=== PATIENT | male | born 1940 | race Caucasian/White ===

== ENCOUNTER 2018-02-14 06:15 | Emergency (ER) | payer MEDICARE, OTHER ==
[~2018-02-14] VITALS: Ht 177.8 cm; Wt 77.1 kg
[~2018-02-14 06:15] MED LIST: ASPIR 8181 MG ORAL; AUGMENTIN 875-1 EAC1 ORAL; CLINDAMYCIN HC300 MG ORAL; IBUPROFEN600 MG ORAL; LOSARTAN POTASS25 MG ORAL; METOPROLOL TART25 MG ORAL; SIMVASTATIN5 MG ORAL
[2018-02-14 06:52] VITALS: BP 160/85
[2018-02-14 07:14] LABS: BASOPHILS % (AUTO) 1.2 % (0.0-2.0); EOSINOPHILS % (AUTO) 3.9 % (0.0-3.0); HEMATOCRIT 38.8 % (42.0-52.0); HEMOGLOBIN 13.9 G/DL (14.2-18.0); LYMPHOCYTES % (AUTO) 22.3 % (20.0-45.0); MEAN CORPUSCULAR VOLUME 97 FL (80-99); MONOCYTES % (AUTO) 11.2 % (1.0-10.0); NEUTROPHILS % (AUTO) 61.4 % (45.0-75.0); PLATELET COUNT 134 K/UL (150-450); RED BLOOD COUNT 4.02 M/UL (4.70-6.10); RED CELL DISTRIBUTION WIDTH 11.5 % (11.6-14.8); WHITE BLOOD COUNT 6.2 K/UL (4.8-10.8)
[2018-02-14 07:27] LABS: ANION GAP 6 mmol/L (5-15); BLOOD UREA NITROGEN 13 mg/dL (7-18); CARBON DIOXIDE 29 MMOL/L (21-32); CHLORIDE 102 MMOL/L (98-107); POTASSIUM 4.1 MMOL/L (3.5-5.1); SODIUM 137 MMOL/L (136-145)
[2018-02-14 07:32] LABS: ALANINE AMINOTRANSFERASE 25 U/L (12-78); ALBUMIN 3.8 G/DL (3.4-5.0); ALBUMIN/GLOBULIN RATIO 1.1 (1.0-2.7); ALKALINE PHOSPHATASE 58 U/L (46-116); ASPARTATE AMINO TRANSFERASE 20 U/L (15-37); BILIRUBIN,TOTAL 0.6 MG/DL (0.2-1.0)
--- NOTE | 2018-02-14 07:50 | Emergency Room Report ---
History of Present Illness General Chief Complaint: Nosebleed Source: Patient Present Illness HPI 77-year-old male no significant past medical history presenting with right- sided nasal epistaxis for one hour prior to arrival. Patient was seen in the emergency room about 4 days ago, for similar problem, he was given a Rhino Rocket and then discharged. Patient saw ENT after who performed cauterization. Patient states that he began to have some nose bleeding again this morning. Taking aspirin but not did not take it today. No other complaints Allergies: Coded Allergies: Horse Serum Proteins (Unverified Allergy, Unknown, Anaphylaxis, 02/10/18) PENICILLINS (Verified Allergy, Unknown, 02/10/18) Uncoded Allergies: HAY FEVER (Allergy, Unknown, 02/10/18) Patient History Past Medical History: see triage record Past Surgical History: none Pertinent Family History: none Reviewed Nursing Documentation: PMH: Agreed; PSxH: Agreed Nursing Documentation-PMH Hx Cardiac Problems: Yes - bypass 6 yrs ago Hx Hypertension: Yes Review of Systems All Other Systems: negative except mentioned in HPI Physical Exam Vital Signs Date Time Temp Pulse Resp B/P (MAP) Pulse Ox O2 Delivery O2 Flow Rate FiO2 02/14/18 06:16 97.9 76 18 116/70 98 Room Air 97.9 Sp02 EP Interpretation: reviewed, normal General Appearance: normal inspection, well appearing, no apparent distress, alert, GCS 15, non-toxic Head: normocephalic, atraumatic Eyes: bilateral eye normal inspection, bilateral eye PERRL, bilateral eye EOMI ENT: other - dried blood in her right nostril, minimal oozing, no blood in the posterior pharynx Neck: normal inspection, full range of motion, supple Respiratory: normal inspection, lungs clear, normal breath sounds, no respiratory distress, no retraction, no wheezing, speaking full sentences, chest symmetrical Cardiovascular #1: normal inspection, regular rate, rhythm, no edema, normal capillary refill Cardiovascular #2: 2+ radial (R), 2+ radial (L) Gastrointestinal: normal inspection, non tender, soft, non-distended, no guarding Genitourinary: no CVA tenderness Musculoskeletal: normal inspection, back normal, normal range of motion, non- tender Neurologic: normal inspection, alert, oriented x3, responsive, motor strength/ tone normal, sensory intact, normal gait, speech normal Psychiatric: normal inspection, judgement/insight normal, memory normal Skin: normal inspection, normal color, no rash, warm/dry, well hydrated, normal turgor Medical Decision Making Diagnostic Impression: Primary Impression: Epistaxis ER Course 77-year-old male with epistaxis DDX: Anterior epistaxis, no shortness of breath no signs of it in posterior pharynx Plan: Obtain labs ER course: Patient has remained stable during ED stay. Patientwas packed with gauze, as well as nasal clasp, for about 30 minutes Labs are normal Nasal clasp was removed, no further epistaxis Disposition: Patient is to be discharged to home. Patient to follow up with ENT. Patient was told if bleeding returns to come back to the emergency room Please note that this Emergency Department Report was dictated using [employer]!embedded software test engineer technology software, occasionally this can lead to erroneous entry secondary to interpretation by the dictation equipment Last Vital Signs Date Time Temp Pulse Resp B/P (MAP) Pulse Ox O2 Delivery O2 Flow Rate FiO2 02/14/18 06:52 97.8 67 16 160/85 100 Room Air 97.8 Disposition: HOME, SELF-CARE Condition: Improved Referrals: NON PHYSICIAN (PCP) Patient Instructions: Nosebleed, [id number] Additional Instructions: PLEASE FOLLOW UP WITH ENT IN 1 WEEK Murray Hernandez M.D. Feb 14, 2018 07:50
[2018-02-14 07:58] VITALS: BP 178/87
[2018-02-14 08:00] VITALS: BP 178/87
== END 2018-02-14 08:09 | disposition home or self-care (01) ==
LOC: EMR 06:40
DX: R04.0 Epistaxis (principal); Z88.0 Allergy status to penicillin; I10 Essential (primary) hypertension; Z95.1 Presence of aortocoronary bypass graft
CPT/HCPCS: 36415; 80053; 85025; 85610; 85730; 99282

== ENCOUNTER 2018-11-15 04:23 | Inpatient (IN) | payer MEDICARE, OTHER ==
[~2018-11-15] VITALS: Ht 177.8 cm; Wt 72.6 kg
[2018-11-15 04:30] VITALS: BP 128/72
--- NOTE | 2018-11-15 04:30 | NUR ---
ED Nurse Note: Patient TRACEY RA 861 from home c/o right hip pain following a trip and fall in the bathroom 1x hour ago. Patient denies head injury or KO. PT AO4. NAD. VSS. Attached to monitor. Family at bedside.
--- NOTE | 2018-11-15 04:35 | Emergency Room Report ---
History of Present Illness General Chief Complaint: Multiple Trauma/Fall Source: Patient Present Illness HPI Patient has history of cardiac disease and cardiac surgery. Patient also has history of spinal disease and spinal surgery in the lumbar area. Patient had a mechanical fall today onto the right side of his head. He denies any other injuries. He complaints of significant pain in his right hip. Pain with movement and unable to bear weight. He denies any dysuria urinary frequency. Denies any other trauma. Denies hitting his head. Symptoms noted to be severe.No other modifying factors. No other associated signs and symptoms. No other complaints were noted. Allergies: Coded Allergies: Horse Serum Proteins (Unverified Allergy, Unknown, Anaphylaxis, 02/10/18) PENICILLINS (Verified Allergy, Unknown, 02/10/18) Uncoded Allergies: HAY FEVER (Allergy, Unknown, 02/10/18) Patient History Past Medical History: CAD Past Surgical History: CABG, other - Back surgery Social History: Denies: smoking, alcohol use, drug use Reviewed Nursing Documentation: PMH: Agreed; PSxH: Agreed Nursing Documentation-PMH Hx Cardiac Problems: Yes - bypass 6 yrs ago Hx Hypertension: Yes Review of Systems All Other Systems: negative except mentioned in HPI Physical Exam Vital Signs Date Time Temp Pulse Resp B/P (MAP) Pulse Ox O2 Delivery O2 Flow Rate FiO2 11/15/18 04:22 97.9 72 18 128/72 94 Room Air Sp02 EP Interpretation: reviewed, normal General Appearance: normal inspection, alert, mild distress - Due to pain Head: atraumatic Eyes: bilateral eye normal inspection ENT: normal ENT inspection, hearing grossly normal, normal voice Neck: normal inspection, full range of motion, supple, no bony tend Respiratory: normal inspection, lungs clear, normal breath sounds, no respiratory distress, no retraction, no wheezing Cardiovascular #1: regular rate, rhythm, no edema Gastrointestinal: normal inspection, normal bowel sounds, non tender, soft, no guarding, no hernia Genitourinary: no CVA tenderness Musculoskeletal: back normal, other - Bruise right hip,, tender to palpation, limited range of motion Neurologic: normal inspection, alert, responsive, speech normal Psychiatric: normal inspection, judgement/insight normal, mood/affect normal Skin: no rash, other - Bruise right hip Medical Decision Making Diagnostic Impression: Primary Impression: Hip pain Additional Impression: Fall ER Course Patient presents emergency department today status post fall and is complaining of right-sided hip pain. Patient is unable to ambulate. Differential considerations include factors dislocation versus strain.Given the severity of the patient's presentation I felt this is a highly complex patient. This patient required extensive workup. We'll obtain CAT scan x-ray and laboratory workup. We'll admit patient for further treatment. We'll sign case out to Dr. Dozier for final disposition. Labs Test 11/15/18 05:00 White Blood Count 7.2 K/UL (4.8-10.8) Red Blood Count 3.41 M/UL (4.70-6.10) Hemoglobin 11.6 G/DL (14.2-18.0) Hematocrit 31.9 % (42.0-52.0) Mean Corpuscular Volume 93 FL (80-99) Mean Corpuscular Hemoglobin 34.0 PG (27.0-31.0) Mean Corpuscular Hemoglobin Concent 36.3 G/DL (32.0-36.0) Red Cell Distribution Width 10.4 % (11.6-14.8) Platelet Count 113 K/UL (150-450) Mean Platelet Volume 8.0 FL (6.5-10.1) Neutrophils (%) (Auto) 68.9 % (45.0-75.0) Lymphocytes (%) (Auto) 14.5 % (20.0-45.0) Monocytes (%) (Auto) 13.7 % (1.0-10.0) Eosinophils (%) (Auto) 1.9 % (0.0-3.0) Basophils (%) (Auto) 0.9 % (0.0-2.0) Prothrombin Time 11.6 SEC (9.30-11.50) Prothromb Time International Ratio 1.1 (0.9-1.1) Activated Partial Thromboplast Time 23 SEC (23-33) Sodium Level 127 MMOL/L (136-145) Potassium Level 4.0 MMOL/L (3.5-5.1) Chloride Level 93 MMOL/L (98-107) Carbon Dioxide Level 25 MMOL/L (21-32) Anion Gap 9 mmol/L (5-15) Blood Urea Nitrogen 19 mg/dL (7-18) Creatinine 1.5 MG/DL (0.55-1.30) Estimat Glomerular Filtration Rate mL/min (>60) Glucose Level 122 MG/DL (74-106) Calcium Level 8.8 MG/DL (8.5-10.1) Total Bilirubin 0.4 MG/DL (0.2-1.0) Aspartate Amino Transf (AST/SGOT) 25 U/L (15-37) Alanine Aminotransferase (ALT/SGPT) 29 U/L (12-78) Alkaline Phosphatase 56 U/L (46-116) Total Protein 6.6 G/DL (6.4-8.2) Albumin 3.8 G/DL (3.4-5.0) Globulin 2.8 g/dL Albumin/Globulin Ratio 1.4 (1.0-2.7) Last Vital Signs Date Time Temp Pulse Resp B/P (MAP) Pulse Ox O2 Delivery O2 Flow Rate FiO2 11/15/18 04:22 97.9 72 18 128/72 94 Room Air Vega Araujo MD Nov 15, 2018 04:35
--- NOTE | 2018-11-15 05:00 | NUR ---
ED Nurse Note: IV Access established. blood drawn and sent down to lab.
[2018-11-15 05:15] LABS: BASOPHILS % (AUTO) 0.9 % (0.0-2.0); EOSINOPHILS % (AUTO) 1.9 % (0.0-3.0); HEMATOCRIT 31.9 % (42.0-52.0); HEMOGLOBIN 11.6 G/DL (14.2-18.0); LYMPHOCYTES % (AUTO) 14.5 % (20.0-45.0); MEAN CORPUSCULAR VOLUME 93 FL (80-99); MONOCYTES % (AUTO) 13.7 % (1.0-10.0); NEUTROPHILS % (AUTO) 68.9 % (45.0-75.0); PLATELET COUNT 113 K/UL (150-450); RED BLOOD COUNT 3.41 M/UL (4.70-6.10); RED CELL DISTRIBUTION WIDTH 10.4 % (11.6-14.8); WHITE BLOOD COUNT 7.2 K/UL (4.8-10.8)
[2018-11-15 05:30] VITALS: BP 152/82
[2018-11-15 05:49] LABS: ANION GAP 9 mmol/L (5-15); BLOOD UREA NITROGEN 19 mg/dL (7-18); CALCIUM 8.8 MG/DL (8.5-10.1); CARBON DIOXIDE 25 MMOL/L (21-32); CHLORIDE 93 MMOL/L (98-107); CREATININE 1.5 MG/DL (0.55-1.30); SODIUM 127 MMOL/L (136-145)
[2018-11-15 05:57] LABS: INR 1.1 (0.9-1.1)
[2018-11-15 05:58] LABS: ALANINE AMINOTRANSFERASE 29 U/L (12-78); ALBUMIN 3.8 G/DL (3.4-5.0); ALBUMIN/GLOBULIN RATIO 1.4 (1.0-2.7); ALKALINE PHOSPHATASE 56 U/L (46-116); ASPARTATE AMINO TRANSFERASE 25 U/L (15-37); BILIRUBIN,TOTAL 0.4 MG/DL (0.2-1.0)
[2018-11-15] MEDS ORDERED: Morphine Sulfate 2mg/ml Inj IVP ONE ×2 (06:15→07:15)
[2018-11-15 06:30] VITALS: BP 126/65
--- NOTE | 2018-11-15 06:30 | NUR ---
ED Nurse Note: Imaging at bedside
--- NOTE | 2018-11-15 07:00 | Diagnostic Imaging Report ---
EXAM: XR Chest, 1 View CLINICAL HISTORY: PAIN TECHNIQUE: Frontal view of the chest. COMPARISON: No relevant prior studies available. FINDINGS: Lungs: 2.5 mm left upper lobe granuloma and probable 3 mm right perihilar granuloma. No focal consolidation. Pleural space: No pleural effusion or pneumothorax. Heart: Prior coronary artery bypass grafting. Mediastinum: Unremarkable. Bones/joints: Prior median sternotomy. Ossification projecting from the inferior mid right clavicle compatible with remote ligamentous injury. Vasculature: Atherosclerotic calcifications in the aortic arch. Upper abdomen: Right diaphragmatic eventration. IMPRESSION: 1. No acute cardiopulmonary process radiographically evident. 2. Prior median sternotomy and coronary artery bypass grafting.
--- NOTE | 2018-11-15 07:01 | NUR ---
ED Nurse Note: ERMD at bedside
--- NOTE | 2018-11-15 07:02 | Diagnostic Imaging Report ---
EXAM: XR Pelvis, 1 or 2 Views CLINICAL HISTORY: PAIN TECHNIQUE: Frontal view of the pelvis. COMPARISON: No relevant prior studies available. FINDINGS: Bones/joints: Osseous demineralization and positioning limits bony detail. No displaced pelvic or proximal femoral fracture radiographically evident. No dislocation. Lower lumbar degenerative disc disease. Soft tissues: Surgical clips project over the ventral soft tissues. IMPRESSION: 1. Osseous demineralization and positioning limit bony detail. 2. No displaced pelvic or proximal femoral fracture radiographically evident. If there is strong clinical suspicion for occult fracture, CT bony pelvis could further assess.
[2018-11-15] MEDS ORDERED: LOSARTAN POTASS50 MG ORAL (07:07)
[2018-11-15] MEDS ORDERED: MICROZIDE12.5 M1 PO (07:07)
[2018-11-15] MEDS ORDERED: BACTRIM-DS1 EA ORAL (07:07)
[2018-11-15] MEDS ORDERED: METOPROLOL TART50 MG ORAL (07:07)
[2018-11-15] MEDS ORDERED: SIMVASTATIN40 MG ORAL (07:07)
[2018-11-15 07:30] VITALS: BP 105/58
--- NOTE | 2018-11-15 07:39 | NUR ---
ED Nurse Note: Pt. sent to CT
--- NOTE | 2018-11-15 07:46 | NUR ---
ED Nurse Note: Azul() :
--- NOTE | 2018-11-15 07:55 | NUR ---
ED Nurse Note: pt. came back from CT
--- NOTE | 2018-11-15 08:12 | NUR ---
ED Nurse Note: pt. is currently sleeping
--- NOTE | 2018-11-15 08:34 | NUR ---
ED Nurse Note: called [facility] Spoke with EMILIANO Swift
--- NOTE | 2018-11-15 08:47 | Diagnostic Imaging Report ---
EXAM: CT Right Hip Without Intravenous Contrast CLINICAL HISTORY: 78-year-old male status post fall, with right hip pain. TECHNIQUE: Axial computed tomography images of the right hip without intravenous contrast. Coronal and sagittal reformatted images were created and reviewed. CTDI is 23.07 mGy and DLP is 516 mGy-cm. One or more of the following dose reduction techniques were used: automated exposure control, adjustment of the mA and/or kV according to patient size, use of iterative reconstruction technique. COMPARISON: AP pelvis and two-view right hip same date. FINDINGS: Bones/joints: Acute, mildly to moderately comminuted and mildly displaced right acetabular fracture, essentially involving all bueno, with minimal fracture extension into the anterior iliac neck and pubic root, without involvement of the ischiopubic ramus or iliac body/wing. No right hip malalignment. Heterogeneous osteoporosis/osteopenia of the medial right femoral head, with associated chronic appearing cortical irregularity, without evidence of acute fracture. Mild right hip DJD. Chronic appearing cortical irregularity of the right anterior superior iliac spine. Partial ankylosis of the right SI joint. Soft tissues: Ill-defined mild to moderate hyperdense fat stranding/hematoma within the imaged extraperitoneal right anterolateral pelvis adjacent to the medial acetabular wall fracture, with mild mass effect upon the right lateral aspect of the imaged moderately to markedly distended and mildly thick-walled urinary bladder. Small right hip joint effusion. Small to moderate right hydrocele, incompletely included. Vasculature: Moderate to marked calcified atherosclerotic plaque. IMPRESSION: Acute, mildly to moderately comminuted and mildly displaced right acetabular wall fractures, with associated ill-defined small to moderate extraperitoneal right anterolateral pelvic hematoma.
[2018-11-15] MEDS ORDERED: Sodium Chloride 500ML 500 ML IV ONE (09:00)
[2018-11-15] MEDS ORDERED: Miralax 17gm pkt ORAL PRN (09:15)
[2018-11-15] MEDS ORDERED: Mylanta II UD 30ml ORAL PRN (09:15)
[2018-11-15] MEDS ORDERED: Zolpidem 5mg tab ORAL PRN (09:15)
--- NOTE | 2018-11-15 09:49 | General Progress Note ---
Progress Note Progress Note [id number] full consult dictated Kristina Weber MD Nov 15, 2018 09:49
[2018-11-15] MEDS: Morphine Sulfate 4mg/ml Inj (IV/IM USE ONLY) IVP PRN ×2 (09:52→17:31)
[2018-11-15 09:59] VITALS: BP 133/60
--- NOTE | 2018-11-15 10:01 | NUR ---
ED Nurse Note: telephone report given to EMILIANO Tripp
--- NOTE | 2018-11-15 10:20 | NUR ---
ED Nurse Note: Pt. transported via gurney with all his belongings. report given to EMILIANO Tripp. 20 gauge IV access on L forearm intact and patent
--- NOTE | 2018-11-15 10:25 | NUR ---
NURSE NOTES: Received report from EMILIANO Grimes. Pt. transported via gurney with all his belongings. Hearing aid both sides remained with patient. Patient AO x4. No active cardiac, respiratory distress noticed at this time. VS at the time of arrival BP 145/72. HR 96, T 98.2, RR 18 at RA O2 sat 97%. Family member at bedside. Bed in lowest position, side rails up x2, call light within reach. Patient c/o leg cramping pain 06/19. IV at Lt. Forearm 20G SL, IV site asymptomatic, patent, intact. Will continue to monitor.
[2018-11-15] MEDS: LORazepam Inj 2mg/ml 1ml IV PRN (10:29)
--- NOTE | 2018-11-15 11:30 | History and Physical Report ---
DATE OF ADMISSION: 11/15/2018 TIME: 9 a.m. CONSULTANTS: 1. Justice So M.D. 2. Yovany Henson M.D. 3. Kristina Weber M.D. 4. Logan Cho M.D. 5. Karen Maria M.D. CHIEF COMPLAINT: Right hip fracture. BRIEF HISTORY: The patient is an 78-year-old male, who lives at home, was slipped and fell, and sustained right hip pain, diagnosed hip fracture. Dr. So consulted briefly, Orthopedic, and said no surgery indicated currently. The patient is currently calm in the ER gurney, slight general pain. No complaint otherwise. REVIEW OF SYSTEMS: No chest pain. No shortness of breath. No nausea, vomiting, or diarrhea. PAST MEDICAL HISTORY: Hypertension, Parkinson, UTI on Bactrim, and chronic prostate issue. PAST SURGICAL HISTORY: Back surgery x2. ALLERGIES: Penicillin and steroids. SOCIAL HISTORY: No smoking. Positive alcohol. No intravenous drug abuse. FAMILY HISTORY: Noncontributory. PHYSICAL EXAMINATION: GENERAL: Calm in bed, oriented x3, in no acute distress. Slight tremor, bilateral hands. VITAL SIGNS: Temperature is 98 degrees, pulse 80, respirations 18, blood pressure 105/58. CARDIOVASCULAR: No murmur. LUNGS: Distant and clear. ABDOMEN: Bowel sounds positive. Nontender. Nondistended. EXTREMITIES: No cyanosis or edema. NEUROLOGIC: Cranial nerves II through XII are grossly intact. Deep tendon reflexes 2+/4. Muscle strength 4/5. Slight bilateral upper extremity tremors. LABORATORY DATA: Labs at this time show hemoglobin 11.6 and platelet 113,000. Otherwise, CBC is normal. BMP shows sodium 127, chloride 93, BUN and creatinine 19 and 1.5, and glucose 122. INR is 1.1 and PTT 23. MEDICATIONS: Include Cozaar, Lopressor, Tylenol, morphine, Zofran, Ambien, and IV fluids. ASSESSMENT: 1. Right hip fracture. 2. Parkinson. 3. Anemia. 4. Hypertension. 5. Urinary tract infection. 6. Chronic prostate issue. 7. Hyponatremia. PLAN: 1. Pain control. 2. PT, dietary evaluation. 3. Blood pressure control. 4. IV fluids. 5. CBC and BMP in the morning. 6. Resume home medications. João Danielson D.O. DR: DEEP JOB#: [id number] CC:
--- NOTE | 2018-11-15 12:00 | NUR ---
NURSE NOTES: Dr. Maria made aware patient c/o leg cramping. Flexeril 10mg PO QID per Dr. Maria. Order noted, entered, carried out. Will continue to monitor.
--- NOTE | 2018-11-15 12:29 | Diagnostic Imaging Report ---
EXAM: US Duplex Bilateral Lower Extremity Veins CLINICAL HISTORY: DVT TECHNIQUE: Real-time duplex ultrasound scan of the bilateral lower extremity veins integrating B-mode two-dimensional vascular structure, Doppler spectral analysis, color flow Doppler imaging and compression. COMPARISON: No relevant prior studies available. FINDINGS: Right deep veins: Unremarkable. No DVT in the right common femoral, femoral, proximal deep femoral or popliteal veins. The veins demonstrate normal color flow, are normally compressible, with normal phasic flow and/or augmentation response. Right superficial veins: Unremarkable. No thrombus in the visualized right great saphenous vein. Left deep veins: Unremarkable. No DVT in the left common femoral, femoral, proximal deep femoral or popliteal veins. The veins demonstrate normal color flow, are normally compressible, with normal phasic flow and/or augmentation response. Left superficial veins: Unremarkable. No thrombus in the visualized left great saphenous vein. Soft tissues: No popliteal cyst. IMPRESSION: Unremarkable bilateral lower extremity duplex venous ultrasound.
--- NOTE | 2018-11-15 12:37 | Diagnostic Imaging Report ---
EXAM: XR Right Hip With Pelvis When Performed, 2 or 3 Views CLINICAL HISTORY: PAIN TECHNIQUE: Two or three views of the right hip, with pelvis when performed. COMPARISON: X-ray of the pelvis dated 11/15/18. FINDINGS: Bones/joints: Vertical lucency suggesting a minimally displaced fracture of the right acetabular roof. Minimally displaced corner fracture of the superolateral margin of the right acetabulum. 1 cm well- corticated triangular ossific fragment adjacent to the greater trochanter, likely sequelae of remote trauma versus a degenerative osteophyte or enthesophyte. Mild degenerative narrowing of the right hip joint space. Degenerative changes in the lower lumbar spine and lumbosacral junction. Soft tissues: Surgical clips overlie the scrotum. IMPRESSION: 1. Vertical lucency suggesting a minimally displaced fracture of the right acetabular roof. 2. Minimally displaced corner fracture of the superolateral margin of the right acetabulum. 3. 1 cm well-corticated triangular ossific fragment adjacent to the greater trochanter, likely sequelae of remote trauma versus a degenerative osteophyte or enthesophyte.
--- NOTE | 2018-11-15 13:54 | Cardiology Progress Note ---
Assessment/Plan Assessment/Plan The patient is seen and examined, full consult note will be dictated soon. Objective Last 24 Hour Vital Signs Date Time Temp Pulse Resp B/P (MAP) Pulse Ox O2 Delivery O2 Flow Rate FiO2 11/15/18 11:03 Room Air 11/15/18 10:00 98.0 91 18 133/60 100 Room Air 11/15/18 09:59 98.0 91 18 133/60 100 Room Air 11/15/18 07:39 98.0 11/15/18 07:30 98.0 80 18 105/58 100 Room Air 11/15/18 06:48 97.9 11/15/18 06:44 72 18 Room Air 11/15/18 06:30 97.9 76 18 126/65 98 Room Air 11/15/18 05:30 97.9 83 17 152/82 98 Room Air 11/15/18 04:30 97.9 70 18 128/72 94 Room Air 11/15/18 04:22 97.9 72 18 128/72 94 Room Air Laboratory Tests Test 11/15/18 05:00 White Blood Count 7.2 K/UL (4.8-10.8) Red Blood Count 3.41 M/UL (4.70-6.10) L Hemoglobin 11.6 G/DL (14.2-18.0) L Hematocrit 31.9 % (42.0-52.0) L Mean Corpuscular Volume 93 FL (80-99) Mean Corpuscular Hemoglobin 34.0 PG (27.0-31.0) H Mean Corpuscular Hemoglobin Concent 36.3 G/DL (32.0-36.0) H Red Cell Distribution Width 10.4 % (11.6-14.8) L Platelet Count 113 K/UL (150-450) L Mean Platelet Volume 8.0 FL (6.5-10.1) Neutrophils (%) (Auto) 68.9 % (45.0-75.0) Lymphocytes (%) (Auto) 14.5 % (20.0-45.0) L Monocytes (%) (Auto) 13.7 % (1.0-10.0) H Eosinophils (%) (Auto) 1.9 % (0.0-3.0) Basophils (%) (Auto) 0.9 % (0.0-2.0) Prothrombin Time 11.6 SEC (9.30-11.50) H Prothromb Time International Ratio 1.1 (0.9-1.1) Activated Partial Thromboplast Time 23 SEC (23-33) Urine Eosinophils None seen (NONE SEEN) Urine Random Creatinine Pending Urine Random Microalbumin Pending Urine Random Total Protein 11 MG/DL (< 11.9) Urine Random Sodium 66 mmol/L (20-110) Urine Creatinine 97.0 MG/DL (30.0-125.0) Urine Microalbumin/Creatinine Ratio Pending Sodium Level 127 MMOL/L (136-145) L Potassium Level 4.0 MMOL/L (3.5-5.1) Chloride Level 93 MMOL/L (98-107) L Carbon Dioxide Level 25 MMOL/L (21-32) Anion Gap 9 mmol/L (5-15) Blood Urea Nitrogen 19 mg/dL (7-18) H Creatinine 1.5 MG/DL (0.55-1.30) H Estimat Glomerular Filtration Rate mL/min (>60) Glucose Level 122 MG/DL (74-106) H Calcium Level 8.8 MG/DL (8.5-10.1) Total Bilirubin 0.4 MG/DL (0.2-1.0) Aspartate Amino Transf (AST/SGOT) 25 U/L (15-37) Alanine Aminotransferase (ALT/SGPT) 29 U/L (12-78) Alkaline Phosphatase 56 U/L (46-116) Total Protein 6.6 G/DL (6.4-8.2) Albumin 3.8 G/DL (3.4-5.0) Globulin 2.8 g/dL Albumin/Globulin Ratio 1.4 (1.0-2.7) Yovany Henson MD Nov 15, 2018 13:54
[2018-11-15] MEDS: Cyclobenzaprine 10mg Tab ORAL SCH ×3 (14:24→21:31)
[2018-11-15] MEDS: Aspirin EC 81mg tab ORAL SCH (14:24)
[2018-11-15 14:34] LABS: APPEARANCE,URINE CLEAR; BILIRUBIN, URINE NEGATIVE (NEGATIVE); COLOR,URINE PALE YELLOW; GLUCOSE, URINE (UA) NEGATIVE (NEGATIVE); KETONES,URINE NEGATIVE (NEGATIVE); LEUKOCYTE ESTERASE ,URINE 1+ (NEGATIVE); NITRITE,URINE NEGATIVE (NEGATIVE); PH,URINE 6.5 (4.5-8.0); PROTEIN,URINE 1+ (NEGATIVE); UROBILINOGEN,URINE NORMAL MG/DL (0.0-1.0)
--- NOTE | 2018-11-15 15:42 | Consultation ---
History of Present Illness General Date patient seen: Nov 16, 2018 Chief Complaint: Multiple Trauma/Fall Present Illness HPI 78 year old male with hx cardiac disease and cardiac surgery, HTN, spinal disease and spinal surgery in the lumbar area was taken to [facility] ER after an episode of mechanical fall resulting in significant pain in his right hip. Pain with movement and unable to bear weight. He was diagnosed to have right acetabular wall fracture and admitted for further wok up. No other associated signs and symptoms. No other complaints were noted. Allergies: Coded Allergies: Horse Serum Proteins (Unverified Allergy, Unknown, Anaphylaxis, 02/10/18) PENICILLINS (Verified Allergy, Unknown, 02/10/18) Uncoded Allergies: HAY FEVER (Allergy, Unknown, 02/10/18) Medication History Scheduled Amoxicillin/Potassium Clav 875-125* (Augmentin 875-125 Tablet*), 1 TAB ORAL TWICE A DAY Aspirin* (Aspir 81*), 81 MG ORAL DAILY, (Reported) Clindamycin Hcl (Clindamycin Hcl), 300 MG ORAL THREE TIMES A DAY Hydrochlorothiazide (Microzide), 12.5 MG PO DAILY, (Reported) Losartan Potassium* (Losartan Potassium*), Unknown Dose ORAL DAILY, (Reported) Losartan Potassium* (Losartan Potassium*), 100 MG ORAL DAILY, (Reported) Metoprolol Tartrate* (Metoprolol Tartrate*), Unknown Dose ORAL EVERY 12 HOURS, ( Reported) Metoprolol Tartrate* (Metoprolol Tartrate*), 50 MG ORAL DAILY, (Reported) Simvastatin (Zocor), Unknown Dose ORAL BEDTIME, (Reported) Simvastatin (Zocor), 40 MG ORAL BEDTIME, (Reported) Trimethoprim/Sulfamethoxazole (Bactrim Ds Tablet), 1 TAB ORAL TWICE A DAY, ( Reported) Scheduled PRN Ibuprofen* (Motrin*), 600 MG ORAL Q8H PRN for For Pain 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 Resuscitation status Full Code Advanced Directive on File Past Medical/Surgical History Past Medical/Surgical History: (1) History of hypertension Review of Systems All Other Systems: negative except mentioned in HPI Physical Exam General Appearance: WD/WN Lines, tubes and drains: peripheral HEENT: normocephalic, atraumatic, mucous membranes moist Neck: non-tender, supple, normal inspection Respiratory/Chest: chest wall non-tender, lungs clear, normal breath sounds Cardiovascular/Chest: normal peripheral pulses, normal rate, regular rhythm Abdomen: normal bowel sounds, non tender Skin Exam: normal pigmentation 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 Last 24 Hour Vital Signs Date Time Temp Pulse Resp B/P (MAP) Pulse Ox O2 Delivery O2 Flow Rate FiO2 11/15/18 12:00 81 11/15/18 11:03 Room Air 11/15/18 10:00 98.0 91 18 133/60 100 Room Air 11/15/18 09:59 98.0 91 18 133/60 100 Room Air 11/15/18 07:39 98.0 11/15/18 07:30 98.0 80 18 105/58 100 Room Air 11/15/18 06:48 97.9 11/15/18 06:44 72 18 Room Air 11/15/18 06:30 97.9 76 18 126/65 98 Room Air 11/15/18 05:30 97.9 83 17 152/82 98 Room Air 11/15/18 04:30 97.9 70 18 128/72 94 Room Air 11/15/18 04:22 97.9 72 18 128/72 94 Room Air Laboratory Tests Test 11/15/18 05:00 11/15/18 13:30 White Blood Count 7.2 K/UL (4.8-10.8) Red Blood Count 3.41 M/UL (4.70-6.10) L Hemoglobin 11.6 G/DL (14.2-18.0) L Hematocrit 31.9 % (42.0-52.0) L Mean Corpuscular Volume 93 FL (80-99) Mean Corpuscular Hemoglobin 34.0 PG (27.0-31.0) H Mean Corpuscular Hemoglobin Concent 36.3 G/DL (32.0-36.0) H Red Cell Distribution Width 10.4 % (11.6-14.8) L Platelet Count 113 K/UL (150-450) L Mean Platelet Volume 8.0 FL (6.5-10.1) Neutrophils (%) (Auto) 68.9 % (45.0-75.0) Lymphocytes (%) (Auto) 14.5 % (20.0-45.0) L Monocytes (%) (Auto) 13.7 % (1.0-10.0) H Eosinophils (%) (Auto) 1.9 % (0.0-3.0) Basophils (%) (Auto) 0.9 % (0.0-2.0) Prothrombin Time 11.6 SEC (9.30-11.50) H Prothromb Time International Ratio 1.1 (0.9-1.1) Activated Partial Thromboplast Time 23 SEC (23-33) Urine Eosinophils None seen (NONE SEEN) Urine Random Creatinine Pending Urine Random Microalbumin Pending Urine Random Total Protein 11 MG/DL (< 11.9) Urine Random Sodium 66 mmol/L (20-110) Urine Creatinine 97.0 MG/DL (30.0-125.0) Urine Microalbumin/Creatinine Ratio Pending Sodium Level 127 MMOL/L (136-145) L Potassium Level 4.0 MMOL/L (3.5-5.1) Chloride Level 93 MMOL/L (98-107) L Carbon Dioxide Level 25 MMOL/L (21-32) Anion Gap 9 mmol/L (5-15) Blood Urea Nitrogen 19 mg/dL (7-18) H Creatinine 1.5 MG/DL (0.55-1.30) H Estimat Glomerular Filtration Rate mL/min (>60) Glucose Level 122 MG/DL (74-106) H Calcium Level 8.8 MG/DL (8.5-10.1) Total Bilirubin 0.4 MG/DL (0.2-1.0) Aspartate Amino Transf (AST/SGOT) 25 U/L (15-37) Alanine Aminotransferase (ALT/SGPT) 29 U/L (12-78) Alkaline Phosphatase 56 U/L (46-116) Total Protein 6.6 G/DL (6.4-8.2) Albumin 3.8 G/DL (3.4-5.0) Globulin 2.8 g/dL Albumin/Globulin Ratio 1.4 (1.0-2.7) Urine Color Pale yellow Urine Appearance Clear Urine pH 6.5 (4.5-8.0) Urine Specific Institute 1.010 (1.005-1.035) Urine Protein 1+ (NEGATIVE) H Urine Glucose (UA) Negative (NEGATIVE) Urine Ketones Negative (NEGATIVE) Urine Blood 5+ (NEGATIVE) H Urine Nitrite Negative (NEGATIVE) Urine Bilirubin Negative (NEGATIVE) Urine Urobilinogen Normal MG/DL (0.0-1.0) Urine Leukocyte Esterase 1+ (NEGATIVE) H Urine RBC 20-30 /HPF (0 - 0) H Urine WBC 2-4 /HPF (0 - 0) Urine Squamous Epithelial Cells Occasional /LPF Urine Bacteria Occasional /HPF (NONE) Height (Feet): 5 Height (Inches): 10.00 Weight (Pounds): 160 Medications Current Medications Medications (Trade) Dose Ordered Sig/Marie Route PRN Reason Start Time Stop Time Status Last Admin Dose Admin Acetaminophen (Tylenol) 650 mg Q4H PRN ORAL fever 11/15/18 09:15 12/15/18 09:14 Al Hydroxide/Mg Hydroxide (Mylanta II) 30 ml Q6H PRN ORAL dyspepsia 11/15/18 09:15 12/15/18 09:14 Aspirin (Ecotrin) 81 mg DAILY ORAL 11/15/18 14:15 12/15/18 14:14 11/15/18 14:24 Atorvastatin Calcium (Lipitor) 40 mg BEDTIME ORAL 11/15/18 21:00 12/15/18 20:59 Cyclobenzaprine HCl (Flexeril) 10 mg QID ORAL 11/15/18 13:00 12/15/18 12:59 11/15/18 14:24 Dextrose (Dextrose 50%) 25 ml Q30M PRN IV Hypoglycemia 11/15/18 09:15 12/15/18 09:14 Dextrose (Dextrose 50%) 50 ml Q30M PRN IV Hypoglycemia 11/15/18 09:15 12/15/18 09:14 Lorazepam (Ativan 2mg/ml 1ml) 0.5 mg Q4H PRN IV For Anxiety 11/15/18 09:15 11/22/18 09:14 11/15/18 10:29 Losartan Potassium (Cozaar) 25 mg DAILY ORAL 11/16/18 09:00 12/16/18 08:59 Metoprolol Tartrate (Lopressor) 50 mg EVERY 12 HOURS ORAL 11/15/18 21:00 12/15/18 20:59 Morphine Sulfate (Morphine Sulfate) 1 mg Q4H PRN IVP For Pain 11/15/18 09:15 11/22/18 09:14 11/15/18 09:52 Ondansetron HCl (Zofran) 4 mg Q6H PRN IVP Nausea & Vomiting 11/15/18 09:15 12/15/18 09:14 Polyethylene Glycol (Miralax) 17 gm HSPRN PRN ORAL Constipation 11/15/18 09:15 12/15/18 09:14 Zolpidem Tartrate (Ambien) 5 mg HSPRN PRN ORAL Insomnia 11/15/18 09:15 11/22/18 09:14 Assessment/Plan Problem List: (1) Pelvic fracture ICD Codes: S32.9XXA - Fracture of unspecified parts of lumbosacral spine and pelvis, initial encounter for closed fracture SNOMED: 80701891 (2) History of hypertension ICD Codes: Z86.79 - Personal history of other diseases of the circulatory system SNOMED: 963123033 (3) Anemia ICD Codes: D64.9 - Anemia, unspecified SNOMED: 465176521 (4) Hyponatremia ICD Codes: E87.1 - Hypo-osmolality and hyponatremia SNOMED: 32348530 Assessment/Plan symptomatic treatment analgesics anemia w/u f/u Na monitor BP dvt prophylaxis Karen Maria MD Nov 15, 2018 15:42
--- NOTE | 2018-11-15 16:06 | NUR ---
NURSE NOTES: Dr. Weber made aware of sodium level of 127. Per Dr. Weber it is expected to be low on sodium d/t patient on HCT at home. No further order given. Will continue to monitor.
--- NOTE | 2018-11-15 16:15 | Consultation ---
DATE OF CONSULTATION: 11/15/2018 CARDIOLOGY CONSULTATION CONSULTING PHYSICIAN: Yovany Henson M.D. REFERRING PHYSICIAN: João Danielson D.O. REASON FOR CONSULTATION: Management of coronary artery disease. HISTORY OF PRESENT ILLNESS: The patient is a very unfortunate 78-year-old gentleman with underlying history of coronary artery disease, history of coronary artery bypass graft surgery, history of lumbar spine surgery in the past who had a mechanical fall at home falling on his right side of his head. The patient had significant pain in the right hip at the time of arrival to the hospital, but he was able to move his right leg. He did have x-ray of the hip which showed comminuted fracture of right acetabulum. He was admitted to telemetry for further evaluation and management. Cardiology consultation was made at request of Dr. Danielson for preoperative cardiac evaluation in case of ORIF of the right hip. The patient at this time denies any chest pain or shortness of breath. According to the patient's , the patient did not have any complaints of dyspnea on exertion. He had coronary artery bypass graft surgery about 6 years ago. The number of grafts is unknown as the patient appears to be lethargic due to pain medication and not providing a detailed history. PAST MEDICAL HISTORY: 1. CAD status post coronary artery bypass graft surgery about 6 years ago. 2. History of hypertension. 3. History of lumbar spine disease. PAST SURGICAL HISTORY: Coronary artery bypass graft surgery and as well as lumbar spine surgery. MEDICATIONS: List of medications at home includes aspirin 81 mg p.o. daily, Augmentin 875/125 one tablet twice a day, clindamycin 300 mg three times a day, hydrochlorothiazide 12.5 mg daily, ibuprofen 600 mg p.o. , losartan 50 mg two tablets daily, metoprolol 25 mg twice daily, simvastatin 40 mg p.o. at bedtime, Bactrim DS one tablet twice a day. ALLERGIES: To penicillin and horse serum proteins. SOCIAL HISTORY: Denies any tobacco, alcohol, or illicit drug use. REVIEW OF SYSTEMS: HEENT: Denies any headache, diplopia, or blurred vision. CONSTITUTIONAL: Denies any night sweats, fever, chills, or weight loss. CARDIOVASCULAR: Denies any chest pain, shortness breath, PND, orthopnea, or leg swelling. There was no syncope or presyncope associated with this fall. PULMONARY: Denies any cough, hemoptysis, or wheezing. GASTROINTESTINAL: Denies any nausea, vomiting, diarrhea, constipation, abdominal pain, or GI bleed. GENITOURINARY: Denies any hematuria, dysuria, or incontinence. NEUROLOGY: Denies any motor dysfunction, sensory deficit, or altered speech. MUSCULOSKELETAL: Significant for pain in the right hip, pain with movement but inability to bear weight. PHYSICAL EXAMINATION: VITAL SIGNS: Blood pressure was 128/72, pulse of 72, respirations 18, O2 saturation 94% on room air, and temperature 97.9 degrees Fahrenheit. GENERAL: The patient is a very unfortunate 78-year-old gentleman, lethargic, in no apparent respiratory distress. HEENT: Atraumatic and normocephalic. Anicteric. Pupils are equal, round, and reactive to light and accommodation. Extraocular muscles intact. NECK: JVP less than 5 cm. No carotid bruit. Carotid upstroke is 2+ bilaterally. CVS: Distant S1 and S2. No murmurs, gallops, or rubs. PMI is at fourth intercostal space at the midclavicular. LUNGS: Clear to auscultation bilaterally. ABDOMEN: Soft, nontender, and nondistended. No hepatosplenomegaly. Positive bowel sounds. EXTREMITIES: No evidence of edema, clubbing, or cyanosis. LABORATORY FINDINGS: WBC 7.3, hemoglobin 11.6, hematocrit 31.9, platelet count 113. Sodium was 127, potassium is 4.0, chloride 93, bicarbonate 25, BUN 19, creatinine 1.5, glucose 122, calcium is 8.8. INR is 1.1. A 12-lead electrocardiogram shows sinus rhythm at a rate of 81 with right bundle-branch block. No acute ST and T-wave abnormalities. Chest x-ray showed sternal wires, but no acute cardiopulmonary disease. ASSESSMENT: The patient is an very unfortunate 78-year-old gentleman, who is seen in Cardiology consultation at request of Dr. Danielson. 1. The patient has right hip fracture and currently not having any active active cardiac disease. His 12-lead electrocardiogram does not show any evidence of ischemia. Prior to this event, the patient did not have any cardiac symptoms such as exertional chest pain or dyspnea on exertion. We would like to obtain 2D echocardiography for assessment of LV systolic and diastolic function. Further therapeutic and diagnostic decision will be based on the results of 2D echocardiography. In the meantime, I would continue the patient on aspirin and statins. 2. History of coronary artery disease, status post coronary artery bypass graft surgery. 3. History of hypertension. 4. Right hip fracture. I would like to thank, Dr. Danielson, for allowing me to participate in care of this patient. Yovany Henson M.D. DR: Althea JOB#: [id number] CC:
--- NOTE | 2018-11-15 18:17 | NUR ---
NURSE NOTES: Dr. Maria made aware urine color between danielle to red, some blood clot noticed at Melendez cath. No further order given yet. Will continue to monitor.
--- NOTE | 2018-11-15 19:29 | NUR ---
HAND-OFF: Report given to EMILIANO Singletary.
--- NOTE | 2018-11-15 19:51 | NUR ---
NURSE NOTES: RECEIVED PATIENT ASLEEP, EASILY AROUSABLE, NO COMPLAINTS OF CHEST PAIN AT THIS TIME. FALL PRECAUTIONS IN PLACE: CALL LIGHT WITHIN REACH, BED IN LOW POSITION AND BED ALARM ON. WILL CONTINUE WITH PLAN OF CARE.
[2018-11-15 20:00] VITALS: BP 141/69
[2018-11-15] MEDS ORDERED: Metoprolol 25mg tab ORAL SCH (21:00)
[2018-11-15] MEDS: Metoprolol Tartrate 50mg tab ORAL SCH (21:30)
[2018-11-15] MEDS: Atorvastatin 20mg tab ORAL SCH (21:30)
[2018-11-16] VITALS: BP 123/65
--- NOTE | 2018-11-16 03:45 | Consultation ---
DATE OF CONSULTATION: 11/15/2018 NEPHROLOGY CONSULTATION CONSULTING PHYSICIAN: Kristina Weber M.D. REASON FOR CONSULTATION: Acute renal failure and hyponatremia. HISTORY OF PRESENT ILLNESS: The patient is an unfortunate 78-year-old male with past medical history significant for history of CAD, hypertension, history of CABG, history of spinal stenosis and status post two surgeries in the back for his spinal stenosis last year. He also has a history of urinary frequency and dysuria and he recently also was diagnosed with Parkinson's. This morning around 3 o'clock, he went to the bathroom. He fell and he hit his and as a result of that he was in severe pain. He was brought in to the hospital. I was called for management of renal disease and electrolyte imbalance. PAST MEDICAL HISTORY: Includin. History of hypertension. 2. History of CAD. 3. History of recurrent urinary tract infection. 4. History of BPH. 5. History of spinal stenosis. PAST SURGICAL HISTORY: 1. History of CABG in 2009. 2. History of two back surgeries for his spinal stenosis in last year July and April of last year. FAMILY HISTORY: Noncontributory. ALLERGIES: Allergic to horse serum and also penicillin. MEDICATIONS: Home medications are includin. Augmentin. 2. Aspirin. 3. Hydrochlorothiazide. 4. Ibuprofen. 5. Losartan. 6. Metoprolol. 7. Simvastatin. 8. Bactrim. REVIEW OF SYSTEMS: GENERAL: He complained of generalized weakness. Denies any fever, chills, or night sweats. HEAD AND NECK: Denies any dysphagia, odynophagia, blurry vision, headache, or neck stiffness. PULMONARY: No shortness of breath. No cough. No sputum. CARDIOVASCULAR: Denies any chest pain, orthopnea, PND, or leg swelling. GASTROINTESTINAL: No nausea, vomiting, diarrhea, hematemesis, or hematochezia. GENITOURINARY: Complained of frequency and nocturia four to five times. Complained of dysuria. Denies any hematuria. MUSCULOSKELETAL: He complained of hip pain. PHYSICAL EXAMINATION: VITAL SIGNS: The patient has a temperature of 98, blood pressure 128/72, pulse rate of 94. HEAD AND NECK: No JVP. No LAD. No thyromegaly. Extraocular movement intact. Pupils are reactive to light and accommodation. LUNGS: Clear to auscultation. CARDIAC: Regular rate and rhythm. S1 and S2. No murmur. No rub. ABDOMEN: Soft, nontender, and nondistended. EXTREMITIES: Has bruising in the , otherwise negative. LABORATORY AND DIAGNOSTIC DATA: Current laboratory values revealed sodium of 127, potassium of 4, chloride 93, bicarb 25, BUN of 19, creatinine of 0.5, glucose of 122, calcium of 8.8. AST of 25, ALT of 29, and alkaline phosphatase of 56. CBC revealed WBC count of 7.2, hemoglobin of 11.6, hematocrit of 31, and platelet count of . There is no UA. ASSESSMENT: 1. Hyponatremia most likely as a result of the hydrochlorothiazide that patient was no. 2. Acute versus chronic renal failure. The etiology of acute renal failure ATN due to unstable hemodynamics. Rhabdomyolysis is another possibility of increasing of creatinine. 3. Status post fall. 4. Hypertension. 5. CAD. 6. Dyslipidemia. PLAN: Plan for the patient to obtain UA. Check the random urine protein and creatinine ratio to calculate the proteinuria. Check the urine sodium and creatinine to calculate fractional excretion of sodium. Ultrasound of the kidney. I would also do urine culture. I would consider starting the patient on Flomax for BPH. I will hold the hydrochlorothiazide, continue with losartan. Again, I would like to thank, Dr. João Danielson, for allowing me to participate in the care of this patient. Kristina Weber M.D. DR: CARI JOB#: [id number] CC:
[2018-11-16 04:00] VITALS: BP 129/62
--- NOTE | 2018-11-16 07:31 | NUR ---
NURSE NOTES: Received report from EMILIANO Singletary. Patient in bed resting. Family member at bedside. Bed in lowest position, side rails up x3, call light within reach. SR with HR 76. No active s/s cardiac, respiratory distress noticed at this time. Melendez cath. draining well to gravity. IV site asymptomatic, patent, intact. AO x3, RA. Will continue to monitor.
--- NOTE | 2018-11-16 07:31 | NUR ---
HAND-OFF: Report given to EMILIANO LIN. PATIENT RESTING IN BED, NO SIGNS OF DISTRESS NOTED. AT BEDSIDE.
--- NOTE | 2018-11-16 07:35 | NUR ---
NURSE NOTES: Dr. So at bedside, discussed plan with patient and family member. Per. Dr. So no surgery needed at this point, but bedrest with no standing up.
[2018-11-16 08:00] VITALS: BP 113/66
[2018-11-16 08:01] LABS: HEMATOCRIT 27.2 % (42.0-52.0); HEMOGLOBIN 9.9 G/DL (14.2-18.0); MEAN CORPUSCULAR VOLUME 93 FL (80-99); PLATELET COUNT 90 K/UL (150-450); RED BLOOD COUNT 2.94 M/UL (4.70-6.10); RED CELL DISTRIBUTION WIDTH 10.8 % (11.6-14.8); WHITE BLOOD COUNT 5.5 K/UL (4.8-10.8)
[2018-11-16 08:26] LABS: ALANINE AMINOTRANSFERASE 26 U/L (12-78); ALBUMIN 3.2 G/DL (3.4-5.0); ALBUMIN/GLOBULIN RATIO 1.2 (1.0-2.7); ALKALINE PHOSPHATASE 44 U/L (46-116); ANION GAP 10 mmol/L (5-15); ASPARTATE AMINO TRANSFERASE 26 U/L (15-37); BILIRUBIN,TOTAL 0.8 MG/DL (0.2-1.0); BLOOD UREA NITROGEN 17 mg/dL (7-18); CALCIUM 8.5 MG/DL (8.5-10.1); CARBON DIOXIDE 23 MMOL/L (21-32); CHLORIDE 94 MMOL/L (98-107); CHOLESTEROL 119 MG/DL (< 200); HDL CHOLESTEROL 71 MG/DL (40-60); POTASSIUM 3.9 MMOL/L (3.5-5.1); SODIUM 127 MMOL/L (136-145); TRIGLYCERIDES 36 MG/DL (30-150)
[2018-11-16] MEDS: Metoprolol Tartrate 50mg tab ORAL SCH ×2 (08:42→20:51)
[2018-11-16] MEDS: Cyclobenzaprine 10mg Tab ORAL SCH ×4 (08:42→20:50)
[2018-11-16] MEDS: Aspirin EC 81mg tab ORAL SCH (08:43)
[2018-11-16] MEDS: Losartan 25mg tab ORAL SCH (08:43)
--- NOTE | 2018-11-16 09:32 | Consultation ---
History of Present Illness General Chief Complaint: Multiple Trauma/Fall Reason for Consultation: UTI Present Illness HPI Mr. Murry is a 78 yo male with PMHX of Hypertension, Parkinsonism and chronic prostate issues who was on bactrim at home for UTI who [facility] after a fall. He reports no fevers, chill and only mild dysuria. He is a little unclear but described suprapubic pain and dysuria without hematuria. He sasy that he slipped and fell. In the ED he was Dx with a right hip Fx but surgery was not indicated per Ortho. He was febrile and had no leukcytosis. His UA had some increase LE but no increase in WBCs. HE thinks that he was on the bactrim for 2 days prior to hospitalization. ID was consulted for UTI PMHx/PSHx HTN Parkinsonism Chronic prostate issues. Back surgery SocHx No T/D Drinks EtOH FamHx Not contributory Allergies: Coded Allergies: Horse Serum Proteins (Unverified Allergy, Unknown, Anaphylaxis, 02/10/18) PENICILLINS (Verified Allergy, Unknown, 02/10/18) Uncoded Allergies: HAY FEVER (Allergy, Unknown, 02/10/18) Medication History Scheduled Amoxicillin/Potassium Clav 875-125* (Augmentin 875-125 Tablet*), 1 TAB ORAL TWICE A DAY Aspirin* (Aspir 81*), 81 MG ORAL DAILY, (Reported) Clindamycin Hcl (Clindamycin Hcl), 300 MG ORAL THREE TIMES A DAY Hydrochlorothiazide (Microzide), 12.5 MG PO DAILY, (Reported) Losartan Potassium* (Losartan Potassium*), Unknown Dose ORAL DAILY, (Reported) Losartan Potassium* (Losartan Potassium*), 100 MG ORAL DAILY, (Reported) Metoprolol Tartrate* (Metoprolol Tartrate*), Unknown Dose ORAL EVERY 12 HOURS, ( Reported) Metoprolol Tartrate* (Metoprolol Tartrate*), 50 MG ORAL DAILY, (Reported) Simvastatin (Zocor), Unknown Dose ORAL BEDTIME, (Reported) Simvastatin (Zocor), 40 MG ORAL BEDTIME, (Reported) Trimethoprim/Sulfamethoxazole (Bactrim Ds Tablet), 1 TAB ORAL TWICE A DAY, ( Reported) Scheduled PRN Ibuprofen* (Motrin*), 600 MG ORAL Q8H PRN for For Pain Patient History Healthcare decision maker Macrum, Larry Resuscitation status Full Code Advanced Directive on File Review of Systems ROS Narrative 12 point ROS negative except as note in the HPI. Physical Exam Last 24 Hour Vital Signs Date Time Temp Pulse Resp B/P (MAP) Pulse Ox O2 Delivery O2 Flow Rate FiO2 11/16/18 09:00 Room Air 11/16/18 08:43 113/66 11/16/18 08:42 79 113/66 11/16/18 08:00 97.3 79 16 113/66 (82) 95 11/16/18 04:00 98.1 76 16 129/62 (84) 97 11/16/18 04:00 76 11/16/18 00:00 98.0 75 19 123/65 (84) 96 11/16/18 00:00 78 11/15/18 21:30 69 141/69 11/15/18 21:00 Room Air 11/15/18 20:00 83 11/15/18 20:00 98.1 69 18 141/69 (93) 97 11/15/18 16:00 97 11/15/18 12:00 81 11/15/18 11:03 Room Air 11/15/18 10:00 98.0 91 18 133/60 100 Room Air 11/15/18 09:59 98.0 91 18 133/60 100 Room Air Intake and Output 11/15/18 11/16/18 19:00 07:00 Intake Total 75 ml Output Total 600 ml 800 ml Balance -600 ml -725 ml Intake Oral 75 ml Output Urine Total 600 ml 800 ml Laboratory Tests Test 11/15/18 13:30 11/16/18 06:38 Urine Color Pale yellow Urine Appearance Clear Urine pH 6.5 (4.5-8.0) Urine Specific [place] 1.010 (1.005-1.035) Urine Protein 1+ (NEGATIVE) H Urine Glucose (UA) Negative (NEGATIVE) Urine Ketones Negative (NEGATIVE) Urine Blood 5+ (NEGATIVE) H Urine Nitrite Negative (NEGATIVE) Urine Bilirubin Negative (NEGATIVE) Urine Urobilinogen Normal MG/DL (0.0-1.0) Urine Leukocyte Esterase 1+ (NEGATIVE) H Urine RBC 20-30 /HPF (0 - 0) H Urine WBC 2-4 /HPF (0 - 0) Urine Squamous Epithelial Cells Occasional /LPF Urine Bacteria Occasional /HPF (NONE) White Blood Count 5.5 K/UL (4.8-10.8) Red Blood Count 2.94 M/UL (4.70-6.10) L Hemoglobin 9.9 G/DL (14.2-18.0) L Hematocrit 27.2 % (42.0-52.0) L Mean Corpuscular Volume 93 FL (80-99) Mean Corpuscular Hemoglobin 33.6 PG (27.0-31.0) H Mean Corpuscular Hemoglobin Concent 36.3 G/DL (32.0-36.0) H Red Cell Distribution Width 10.8 % (11.6-14.8) L Platelet Count 90 K/UL (150-450) L Mean Platelet Volume 8.6 FL (6.5-10.1) Neutrophils (%) (Auto) % (45.0-75.0) Lymphocytes (%) (Auto) % (20.0-45.0) Monocytes (%) (Auto) % (1.0-10.0) Eosinophils (%) (Auto) % (0.0-3.0) Basophils (%) (Auto) % (0.0-2.0) Neutrophils % (Manual) Pending Lymphocytes % (Manual) Pending Platelet Estimate Pending Platelet Morphology Pending Sodium Level 127 MMOL/L (136-145) L Potassium Level 3.9 MMOL/L (3.5-5.1) Chloride Level 94 MMOL/L (98-107) L Carbon Dioxide Level 23 MMOL/L (21-32) Anion Gap 10 mmol/L (5-15) Blood Urea Nitrogen 17 mg/dL (7-18) Creatinine 1.0 MG/DL (0.55-1.30) Estimat Glomerular Filtration Rate mL/min (>60) Glucose Level 107 MG/DL (74-106) H Calcium Level 8.5 MG/DL (8.5-10.1) Total Bilirubin 0.8 MG/DL (0.2-1.0) Aspartate Amino Transf (AST/SGOT) 26 U/L (15-37) Alanine Aminotransferase (ALT/SGPT) 26 U/L (12-78) Alkaline Phosphatase 44 U/L (46-116) L Total Protein 5.9 G/DL (6.4-8.2) L Albumin 3.2 G/DL (3.4-5.0) L Globulin 2.7 g/dL Albumin/Globulin Ratio 1.2 (1.0-2.7) Triglycerides Level 36 MG/DL (30-150) Cholesterol Level 119 MG/DL (< 200) LDL Cholesterol 45 mg/dL (<100) HDL Cholesterol 71 MG/DL (40-60) H Cholesterol/HDL Ratio 1.7 (3.3-4.4) L Thyroid Stimulating Hormone (TSH) 1.569 uiU/mL (0.358-3.740) Height (Feet): 5 Height (Inches): 10.00 Weight (Pounds): 160 Medications Current Medications Medications (Trade) Dose Ordered Sig/Marie Route PRN Reason Start Time Stop Time Status Last Admin Dose Admin Acetaminophen (Tylenol) 650 mg Q4H PRN ORAL fever 11/15/18 09:15 12/15/18 09:14 Al Hydroxide/Mg Hydroxide (Mylanta II) 30 ml Q6H PRN ORAL dyspepsia 11/15/18 09:15 12/15/18 09:14 Aspirin (Ecotrin) 81 mg DAILY ORAL 11/15/18 14:15 12/15/18 14:14 11/16/18 08:43 Atorvastatin Calcium (Lipitor) 40 mg BEDTIME ORAL 11/15/18 21:00 12/15/18 20:59 11/15/18 21:30 Cyclobenzaprine HCl (Flexeril) 10 mg QID ORAL 11/15/18 13:00 12/15/18 12:59 11/16/18 08:42 Dextrose (Dextrose 50%) 25 ml Q30M PRN IV Hypoglycemia 11/15/18 09:15 12/15/18 09:14 Dextrose (Dextrose 50%) 50 ml Q30M PRN IV Hypoglycemia 11/15/18 09:15 12/15/18 09:14 Lorazepam (Ativan 2mg/ml 1ml) 0.5 mg Q4H PRN IV For Anxiety 11/15/18 09:15 11/22/18 09:14 11/15/18 10:29 Losartan Potassium (Cozaar) 25 mg DAILY ORAL 11/16/18 09:00 12/16/18 08:59 11/16/18 08:43 Metoprolol Tartrate (Lopressor) 50 mg EVERY 12 HOURS ORAL 11/15/18 21:00 12/15/18 20:59 11/16/18 08:42 Morphine Sulfate (Morphine Sulfate) 1 mg Q4H PRN IVP For Pain 11/15/18 09:15 11/22/18 09:14 11/15/18 17:31 Ondansetron HCl (Zofran) 4 mg Q6H PRN IVP Nausea & Vomiting 11/15/18 09:15 12/15/18 09:14 Polyethylene Glycol (Miralax) 17 gm HSPRN PRN ORAL Constipation 11/15/18 09:15 12/15/18 09:14 Zolpidem Tartrate (Ambien) 5 mg HSPRN PRN ORAL Insomnia 11/15/18 09:15 11/22/18 09:14 Objective Narrative Gen: NAD, Thin, alert HEENT: NCAT, MMM, EOMI, PERRL, No Oral lesion, no scleral icterus NECK: full range of motion, supple, no meningismus, No LAD, No JVD LUNGS: CTAB, No W/C, No Accessory muscle use CARDS: RRR, S1, S2, No M/R/G, ABD: Soft, NT, ND, No R/G, + BS, No HSM, No Masses : No CVA tenderness Ext: C/C/E, Pulses 2+ B/L (DP, Rad): Right hip tender NEURO: A/O x 2, Strength and Sensation Grossly intact, Mild tremor PSYCH: Mood/affect normal SKIN: Warm/dry, No rashes Assessment/Plan Assessment/Plan 78 yo male with PMHX of Hypertension, Parkinsonism and chronic prostate issues who is currently on Bactrm for UTI who came to the ED after a fall. UTI On bactrim at home UA essentially negative Right Hip Fx HTN Parkinsonism Chronic prostate issues. Back surgery PLAN - Continue Bactrim # 3 /7 (End date 11/20/18) - Monitor CBC and Temps Thank you for this consult. We will continue to follow the patient during this hospitalization. Justice Kelsey MD Nov 16, 2018 09:32
--- NOTE | 2018-11-16 11:22 | Pulmonology Progress Note ---
Assessment/Plan Problems: (1) Pelvic fracture (2) History of hypertension (3) Anemia (4) Hyponatremia Assessment/Plan all reviewed doing better f/u Na rule out SIADH, ? to pain anemia w/u in process. dvt prophylaxis. Subjective ROS Limited/Unobtainable: No Constitutional: Reports: no symptoms HEENT: Repors: no symptoms Respiratory: Reports: no symptoms Allergies: Coded Allergies: Horse Serum Proteins (Unverified Allergy, Unknown, Anaphylaxis, 02/10/18) PENICILLINS (Verified Allergy, Unknown, 02/10/18) Uncoded Allergies: HAY FEVER (Allergy, Unknown, 02/10/18) Objective Last 24 Hour Vital Signs Date Time Temp Pulse Resp B/P (MAP) Pulse Ox O2 Delivery O2 Flow Rate FiO2 11/16/18 09:00 Room Air 11/16/18 08:43 113/66 11/16/18 08:42 79 113/66 11/16/18 08:00 80 11/16/18 08:00 97.3 79 16 113/66 (82) 95 11/16/18 04:00 98.1 76 16 129/62 (84) 97 11/16/18 04:00 76 11/16/18 00:00 98.0 75 19 123/65 (84) 96 11/16/18 00:00 78 11/15/18 21:30 69 141/69 11/15/18 21:00 Room Air 11/15/18 20:00 83 11/15/18 20:00 98.1 69 18 141/69 (93) 97 11/15/18 16:00 97 11/15/18 12:00 81 Intake and Output 11/15/18 11/16/18 19:00 07:00 Intake Total 75 ml Output Total 600 ml 800 ml Balance -600 ml -725 ml Intake Oral 75 ml Output Urine Total 600 ml 800 ml General Appearance: WD/WN HEENT: normocephalic, atraumatic Respiratory/Chest: chest wall non-tender, lungs clear Cardiovascular: normal peripheral pulses, normal rate Abdomen: normal bowel sounds, no organomegaly Genitourinary: normal external genitalia Skin: no rash Neurologic/Psychiatric: extractor loader and unloader II-XII grossly normal, abnormal gait Microbiology Date/Time Source Procedure Growth Status 11/15/18 05:00 Urine,Clean Catch Urine Culture - Preliminary NO GROWTH Resulted Laboratory Tests 11/15/18 13:30: Urine Color Pale yellow, Urine Appearance Clear, Urine pH 6.5, Urine Specific [place] 1.010, Urine Protein 1+H, Urine Glucose (UA) Negative, Urine Ketones Negative, Urine Blood 5+H, Urine Nitrite Negative, Urine Bilirubin Negative, Urine Urobilinogen Normal, Urine Leukocyte Esterase 1+H, Urine RBC 20-30H, Urine WBC 2-4, Urine Squamous Epithelial Cells Occasional, Urine Bacteria Occasional 11/16/18 06:38: White Blood Count 5.5, Red Blood Count 2.94L, Hemoglobin 9.9L, Hematocrit 27.2L , Mean Corpuscular Volume 93, Mean Corpuscular Hemoglobin 33.6H, Mean Corpuscular Hemoglobin Concent 36.3H, Red Cell Distribution Width 10.8L, Platelet Count 90L, Mean Platelet Volume 8.6, Neutrophils (%) (Auto) , Lymphocytes (%) (Auto) , Monocytes (%) (Auto) , Eosinophils (%) (Auto) , Basophils (%) (Auto) , Differential Total Cells Counted 100, Neutrophils % ( Manual) 68, Lymphocytes % (Manual) 14L, Monocytes % (Manual) 16H, Eosinophils % (Manual) 1, Basophils % (Manual) 1, Band Neutrophils 0, Platelet Estimate DecreasedL, Platelet Morphology Normal, Hypochromasia 1+, Sodium Level 127L, Potassium Level 3.9, Chloride Level 94L, Carbon Dioxide Level 23, Anion Gap 10, Blood Urea Nitrogen 17, Creatinine 1.0, Estimat Glomerular Filtration Rate , Glucose Level 107H, Osmolality [Pending], Uric Acid [Pending], Calcium Level 8.5 , Total Bilirubin 0.8, Aspartate Amino Transf (AST/SGOT) 26, Alanine Aminotransferase (ALT/SGPT) 26, Alkaline Phosphatase 44L, Total Protein 5.9L, Albumin 3.2L, Globulin 2.7, Albumin/Globulin Ratio 1.2, Triglycerides Level 36, Cholesterol Level 119, LDL Cholesterol 45, HDL Cholesterol 71H, Cholesterol/HDL Ratio 1.7L, Thyroid Stimulating Hormone (TSH) 1.569, Free Thyroxine [Pending], Free Triiodothyronine [Pending], Cortisol [Pending] Current Medications Medications (Trade) Dose Ordered Sig/Marie Route PRN Reason Start Time Stop Time Status Last Admin Dose Admin Acetaminophen (Tylenol) 650 mg Q4H PRN ORAL fever 11/15/18 09:15 12/15/18 09:14 Al Hydroxide/Mg Hydroxide (Mylanta II) 30 ml Q6H PRN ORAL dyspepsia 11/15/18 09:15 12/15/18 09:14 Aspirin (Ecotrin) 81 mg DAILY ORAL 11/15/18 14:15 12/15/18 14:14 11/16/18 08:43 Atorvastatin Calcium (Lipitor) 40 mg BEDTIME ORAL 11/15/18 21:00 12/15/18 20:59 11/15/18 21:30 Cyclobenzaprine HCl (Flexeril) 10 mg QID ORAL 11/15/18 13:00 12/15/18 12:59 11/16/18 08:42 Dextrose (Dextrose 50%) 25 ml Q30M PRN IV Hypoglycemia 11/15/18 09:15 12/15/18 09:14 Dextrose (Dextrose 50%) 50 ml Q30M PRN IV Hypoglycemia 11/15/18 09:15 12/15/18 09:14 Lorazepam (Ativan 2mg/ml 1ml) 0.5 mg Q4H PRN IV For Anxiety 11/15/18 09:15 11/22/18 09:14 11/15/18 10:29 Losartan Potassium (Cozaar) 25 mg DAILY ORAL 11/16/18 09:00 12/16/18 08:59 11/16/18 08:43 Metoprolol Tartrate (Lopressor) 50 mg EVERY 12 HOURS ORAL 11/15/18 21:00 12/15/18 20:59 11/16/18 08:42 Morphine Sulfate (Morphine Sulfate) 1 mg Q4H PRN IVP For Pain 11/15/18 09:15 11/22/18 09:14 11/15/18 17:31 Ondansetron HCl (Zofran) 4 mg Q6H PRN IVP Nausea & Vomiting 11/15/18 09:15 12/15/18 09:14 Polyethylene Glycol (Miralax) 17 gm HSPRN PRN ORAL Constipation 11/15/18 09:15 12/15/18 09:14 Zolpidem Tartrate (Ambien) 5 mg HSPRN PRN ORAL Insomnia 11/15/18 09:15 11/22/18 09:14 Karen Maria MD Nov 16, 2018 11:22
[2018-11-16 12:00] VITALS: BP 123/66
[2018-11-16] MEDS: Bactrim-DS 1 tab ORAL SCH ×2 (12:53→17:36)
[2018-11-16 13:28] LABS: APPEARANCE,URINE SLIGHTLY CLOUDY; BILIRUBIN, URINE NEGATIVE (NEGATIVE); GLUCOSE, URINE (UA) NEGATIVE (NEGATIVE); KETONES,URINE 1+ (NEGATIVE); LEUKOCYTE ESTERASE ,URINE 2+ (NEGATIVE); NITRITE,URINE NEGATIVE (NEGATIVE); PH,URINE 5 (4.5-8.0); PROTEIN,URINE 3+ (NEGATIVE); UROBILINOGEN,URINE 1 MG/DL (0.0-1.0)
--- NOTE | 2018-11-16 13:35 | General Progress Note ---
Assessment/Plan Problem List: (1) Fall ICD Codes: W19.XXXA - Unspecified fall, initial encounter SNOMED: 7783178, 162665721 (2) Hip pain ICD Codes: M25.559 - Pain in unspecified hip SNOMED: 67551100 (3) History of hypertension ICD Codes: Z86.79 - Personal history of other diseases of the circulatory system SNOMED: 216296678 (4) Pelvic fracture ICD Codes: S32.9XXA - Fracture of unspecified parts of lumbosacral spine and pelvis, initial encounter for closed fracture SNOMED: 12858718 (5) Anemia ICD Codes: D64.9 - Anemia, unspecified SNOMED: 407985200 (6) Hyponatremia ICD Codes: E87.1 - Hypo-osmolality and hyponatremia SNOMED: 01972620 Status: unchanged Assessment/Plan pain control ortho f/u neph f/u cbc bmp am Subjective Constitutional: Reports: weakness Allergies: Coded Allergies: Horse Serum Proteins (Unverified Allergy, Unknown, Anaphylaxis, 02/10/18) PENICILLINS (Verified Allergy, Unknown, 02/10/18) Uncoded Allergies: HAY FEVER (Allergy, Unknown, 02/10/18) All Systems: reviewed and negative except above Subjective calm in bed Objective Last 24 Hour Vital Signs Date Time Temp Pulse Resp B/P (MAP) Pulse Ox O2 Delivery O2 Flow Rate FiO2 11/16/18 12:00 98.0 66 16 123/66 (85) 95 11/16/18 09:00 Room Air 11/16/18 08:43 113/66 11/16/18 08:42 79 113/66 11/16/18 08:00 80 11/16/18 08:00 97.3 79 16 113/66 (82) 95 11/16/18 04:00 98.1 76 16 129/62 (84) 97 11/16/18 04:00 76 11/16/18 00:00 98.0 75 19 123/65 (84) 96 11/16/18 00:00 78 11/15/18 21:30 69 141/69 11/15/18 21:00 Room Air 11/15/18 20:00 83 11/15/18 20:00 98.1 69 18 141/69 (93) 97 11/15/18 16:00 97 Intake and Output 11/15/18 11/16/18 19:00 07:00 Intake Total 75 ml Output Total 600 ml 800 ml Balance -600 ml -725 ml Intake Oral 75 ml Output Urine Total 600 ml 800 ml Laboratory Tests 11/16/18 06:38: White Blood Count 5.5, Red Blood Count 2.94L, Hemoglobin 9.9L, Hematocrit 27.2L , Mean Corpuscular Volume 93, Mean Corpuscular Hemoglobin 33.6H, Mean Corpuscular Hemoglobin Concent 36.3H, Red Cell Distribution Width 10.8L, Platelet Count 90L, Mean Platelet Volume 8.6, Neutrophils (%) (Auto) , Lymphocytes (%) (Auto) , Monocytes (%) (Auto) , Eosinophils (%) (Auto) , Basophils (%) (Auto) , Differential Total Cells Counted 100, Neutrophils % ( Manual) 68, Lymphocytes % (Manual) 14L, Monocytes % (Manual) 16H, Eosinophils % (Manual) 1, Basophils % (Manual) 1, Band Neutrophils 0, Platelet Estimate DecreasedL, Platelet Morphology Normal, Hypochromasia 1+, Sodium Level 127L, Potassium Level 3.9, Chloride Level 94L, Carbon Dioxide Level 23, Anion Gap 10, Blood Urea Nitrogen 17, Creatinine 1.0, Estimat Glomerular Filtration Rate , Glucose Level 107H, Osmolality 265L, Uric Acid 4.4, Calcium Level 8.5, Total Bilirubin 0.8, Aspartate Amino Transf (AST/SGOT) 26, Alanine Aminotransferase ( ALT/SGPT) 26, Alkaline Phosphatase 44L, Total Protein 5.9L, Albumin 3.2L, Globulin 2.7, Albumin/Globulin Ratio 1.2, Triglycerides Level 36, Cholesterol Level 119, LDL Cholesterol 45, HDL Cholesterol 71H, Cholesterol/HDL Ratio 1.7L, Thyroid Stimulating Hormone (TSH) 1.569, Free Thyroxine 1.17, Free Triiodothyronine 1.9L, Cortisol [Pending] 11/16/18 13:00: Urine Color [Pending], Urine Appearance [Pending], Urine pH [Pending], Urine Specific [place] [Pending], Urine Protein [Pending], Urine Glucose (UA) [Pending ], Urine Ketones [Pending], Urine Blood [Pending], Urine Nitrite [Pending], Urine Bilirubin [Pending], Urine Urobilinogen [Pending], Urine Leukocyte Esterase [Pending], Urine RBC [Pending], Urine WBC [Pending], Urine Squamous Epithelial Cells [Pending], Urine Bacteria [Pending], Urine Osmolality [Pending] , Urine Random Sodium [Pending] Height (Feet): 5 Height (Inches): 10.00 Weight (Pounds): 160 General Appearance: lethargic EENT: normal ENT inspection Neck: normal alignment Cardiovascular: normal peripheral pulses, normal rate, regular rhythm Respiratory/Chest: chest wall non-tender, lungs clear, normal breath sounds Abdomen: normal bowel sounds, non tender, soft Extremities: normal inspection Edema: no edema noted Arm (L), no edema noted Arm (R), no edema noted Leg (L), no edema noted Leg (R), no edema noted Pedal (L), no edema noted Pedal (R), no edema noted Generalized Neurologic: responsive, motor weakness Skin: normal pigmentation, warm/dry João Danielson DO Nov 16, 2018 13:35
[2018-11-16 13:42] LABS: COLOR,URINE YELLOW
--- NOTE | 2018-11-16 14:00 | Consultation ---
DATE OF CONSULTATION: 11/16/2018 ORTHOPEDIC CONSULTATION CONSULTING PHYSICIAN: Justice So M.D. REQUESTING PHYSICIAN: Vega Aruajo M.D. DIAGNOSIS: Right pelvic insufficiency fracture following trauma. HISTORY: The patient is a very pleasant 78-year-old gentleman, who slipped and fell at home. There was no reported loss of consciousness. His was not able to assist him in standing and he had pain with movement of the right hip. An ambulance was called and he was brought in to [facility]. PAST MEDICAL HISTORY: Significant for new onset dementia. He has chronic urinary tract infection, issues with frequency and urgency on a regular basis. He wears bilateral hearing aids. PHYSICAL EXAMINATION: GENERAL: He is well appearing and in no distress. EXTREMITIES: Right lower extremity examination reveals equal leg lengths and he is able to straight leg raise as well as flex the right hip to 50 degrees with mild discomfort. There are no open wounds. DIAGNOSTIC DATA: Radiographs and CT scan reveal a comminuted minimally displaced intra-articular acetabular/pelvic fracture with no significant step-off and no protrusio. ASSESSMENT AND PLAN: The patient sustained a right pelvic fracture from a slip and fall. It extends into the intra-articular space. There is no significant step-off or displacement. I have recommended nonoperative treatment. I have recommended strictly nonweightbearing. If he is not able to manage using a walker and remain strictly nonweightbearing, then a wheelchair is recommended. If he is bed bound for an extended period of time, DVT prophylaxis will be required. I appreciate the opportunity to consult. Justice So M.D. DR: GERRI JOB#: [id number] CC:
--- NOTE | 2018-11-16 14:07 | Nephrology Progress Note ---
Assessment/Plan Assessment 1. Hyponatremia most likely as a result of the hydrochlorothiazide that patient was no. 2. Acute versus chronic renal failure. The etiology of acute renal failure ATN due to unstable hemodynamics. Rhabdomyolysis is another possibility of increasing of creatinine. 3. Status post fall. 4. Hypertension. 5. CAD. 6. Dyslipidemia. Plan free water restriction monitoring renal function start flomax replace electrolyte as need ot Subjective Constitutional: Reports: no symptoms HEENT: Reports: no symptoms Genitourinary: Reports: no symptoms Neurologic/Psychiatric: Reports: no symptoms Subjective alert and awake Objective Objective Last 24 Hour Vital Signs Date Time Temp Pulse Resp B/P (MAP) Pulse Ox O2 Delivery O2 Flow Rate FiO2 11/16/18 12:00 98.0 66 16 123/66 (85) 95 11/16/18 09:00 Room Air 11/16/18 08:43 113/66 11/16/18 08:42 79 113/66 11/16/18 08:00 80 11/16/18 08:00 97.3 79 16 113/66 (82) 95 11/16/18 04:00 98.1 76 16 129/62 (84) 97 11/16/18 04:00 76 11/16/18 00:00 98.0 75 19 123/65 (84) 96 11/16/18 00:00 78 11/15/18 21:30 69 141/69 11/15/18 21:00 Room Air 11/15/18 20:00 83 11/15/18 20:00 98.1 69 18 141/69 (93) 97 11/15/18 16:00 97 Intake and Output 11/15/18 11/16/18 19:00 07:00 Intake Total 75 ml Output Total 600 ml 800 ml Balance -600 ml -725 ml Intake Oral 75 ml Output Urine Total 600 ml 800 ml Laboratory Tests 11/16/18 06:38: White Blood Count 5.5, Red Blood Count 2.94L, Hemoglobin 9.9L, Hematocrit 27.2L , Mean Corpuscular Volume 93, Mean Corpuscular Hemoglobin 33.6H, Mean Corpuscular Hemoglobin Concent 36.3H, Red Cell Distribution Width 10.8L, Platelet Count 90L, Mean Platelet Volume 8.6, Neutrophils (%) (Auto) , Lymphocytes (%) (Auto) , Monocytes (%) (Auto) , Eosinophils (%) (Auto) , Basophils (%) (Auto) , Differential Total Cells Counted 100, Neutrophils % ( Manual) 68, Lymphocytes % (Manual) 14L, Monocytes % (Manual) 16H, Eosinophils % (Manual) 1, Basophils % (Manual) 1, Band Neutrophils 0, Platelet Estimate DecreasedL, Platelet Morphology Normal, Hypochromasia 1+, Sodium Level 127L, Potassium Level 3.9, Chloride Level 94L, Carbon Dioxide Level 23, Anion Gap 10, Blood Urea Nitrogen 17, Creatinine 1.0, Estimat Glomerular Filtration Rate , Glucose Level 107H, Osmolality 265L, Uric Acid 4.4, Calcium Level 8.5, Total Bilirubin 0.8, Aspartate Amino Transf (AST/SGOT) 26, Alanine Aminotransferase ( ALT/SGPT) 26, Alkaline Phosphatase 44L, Total Protein 5.9L, Albumin 3.2L, Globulin 2.7, Albumin/Globulin Ratio 1.2, Triglycerides Level 36, Cholesterol Level 119, LDL Cholesterol 45, HDL Cholesterol 71H, Cholesterol/HDL Ratio 1.7L, Thyroid Stimulating Hormone (TSH) 1.569, Free Thyroxine 1.17, Free Triiodothyronine 1.9L, Cortisol [Pending] 11/16/18 13:00: Urine Color Yellow, Urine Appearance Slightly cloudy, Urine pH 5, Urine Specific [place] 1.015, Urine Protein 3+H, Urine Glucose (UA) Negative, Urine Ketones 1+H, Urine Blood 5+H, Urine Nitrite Negative, Urine Bilirubin Negative, Urine Urobilinogen 1H, Urine Leukocyte Esterase 2+H, Urine RBC 40-60H, Urine WBC 2-4, Urine Squamous Epithelial Cells Occasional, Urine Bacteria Few, Urine Osmolality 435, Urine Random Sodium 34 Height (Feet): 5 Height (Inches): 10.00 Weight (Pounds): 160 Objective HEAD AND NECK: No JVP. No LAD. No thyromegaly. Extraocular movement intact. Pupils are reactive to light and accommodation. LUNGS: Clear to auscultation. CARDIAC: Regular rate and rhythm. S1 and S2. No murmur. No rub. ABDOMEN: Soft, nontender, and nondistended. EXTREMITIES: Has bruising in the right hip otherwise negative Kristina Weber MD Nov 16, 2018 14:07
--- NOTE | 2018-11-16 15:15 | NUR ---
CASE MANAGEMENT:REVIEW BIBA FROM HOME CC: TRIP AND FALL IN BATHROOM SI: HIP PAIN 97.9 72 18 128/72 94% ON RA H/H-11.6/31.9 PLT-113 NA-127 IS: 500CC NS BOLUS IV MORPHINE X2 CHEST XRAY HIP XRAY PELVIC XRAY CT HIP : TO TELEMETRY PLAN: ORTHO CONSULT INTERQUAL CRITERIA MET
[2018-11-16 16:00] VITALS: BP 139/65
--- NOTE | 2018-11-16 18:15 | NUR ---
NURSE NOTES: Per Dr. Weber patient on fluid restriction 1000 mL/per. Order entered, noted, and carried out. Will continue to monitor.
--- NOTE | 2018-11-16 19:30 | NUR ---
NURSE NOTES: Received pt. and report from EMILIANO Tripp. Observe pt. resting in bed with family members at bedside. Pt. is A/O x 2, IV site intact, asymptomatic, and patent, cardiac technologist is in placed, bed is in the lowest position and locked, call light within reach. Pt. has a Melendez in placed; 16 cymro for retention. No acute distress noted at this time. Will continue plan of care.
--- NOTE | 2018-11-16 19:37 | NUR ---
HAND-OFF: Report given to EMILIANO Marinelli. Patient in stable condition.
[2018-11-16 20:00] VITALS: BP 145/63
[2018-11-16] MEDS: Atorvastatin 20mg tab ORAL SCH (20:50)
[2018-11-16] MEDS: Tamsulosin 0.4mg cap ORAL SCH (20:51)
--- NOTE | 2018-11-16 22:03 | NUR ---
NURSE NOTES: Pt. is confused and keeps trying to pull off bed sheets and saying, "I need to go home and see my ." Reorient pt. that he is in the hospital and that his is at home and mentioned that she will come visit him in the morning.
--- NOTE | 2018-11-16 23:16 | NUR ---
NURSE NOTES: Pt. is agitated and continues to pull off bed sheets and reaches for his Melendez.
[2018-11-17] VITALS: BP 124/66
[2018-11-17] MEDS: LORazepam Inj 2mg/ml 1ml IV PRN (00:27)
--- NOTE | 2018-11-17 00:30 | NUR ---
NURSE NOTES: Pt. threw bed sheets on the floor and tried to pull out his Melendez. Administered Ativan 0.5mg IVP. Will continue to monitor
[2018-11-17 04:00] VITALS: BP 123/61
--- NOTE | 2018-11-17 07:00 | NUR ---
NURSE NOTES: Received patient report from brian rn. patient is on bed awake.no acute distress noted. with family member. SR on the monitor, no arrythmias reported during the night. bed is low and locked. will continue to monitor.
--- NOTE | 2018-11-17 07:30 | NUR ---
HAND-OFF: Report given to EMILIANO Kruse. Pt. is in stable condition. Plan of care endorsed.
[2018-11-17 07:37] LABS: HEMATOCRIT 27.2 % (42.0-52.0); HEMOGLOBIN 9.8 G/DL (14.2-18.0); MEAN CORPUSCULAR VOLUME 91 FL (80-99); PLATELET COUNT 96 K/UL (150-450); RED BLOOD COUNT 2.97 M/UL (4.70-6.10); RED CELL DISTRIBUTION WIDTH 10.6 % (11.6-14.8); WHITE BLOOD COUNT 5.9 K/UL (4.8-10.8)
[2018-11-17 07:58] LABS: ANION GAP 10 mmol/L (5-15); BLOOD UREA NITROGEN 17 mg/dL (7-18); CALCIUM 8.7 MG/DL (8.5-10.1); CARBON DIOXIDE 23 MMOL/L (21-32); CHLORIDE 95 MMOL/L (98-107); CREATININE 1.1 MG/DL (0.55-1.30); POTASSIUM 3.9 MMOL/L (3.5-5.1); SODIUM 128 MMOL/L (136-145)
[2018-11-17 08:00] VITALS: BP 116/70
[2018-11-17] MEDS: Losartan 25mg tab ORAL SCH (08:35)
[2018-11-17] MEDS: Bactrim-DS 1 tab ORAL SCH ×2 (08:35→21:24)
[2018-11-17] MEDS: Aspirin EC 81mg tab ORAL SCH (08:35)
[2018-11-17] MEDS: Cyclobenzaprine 10mg Tab ORAL SCH ×3 (08:36→17:10)
[2018-11-17] MEDS: Metoprolol Tartrate 50mg tab ORAL SCH ×2 (08:36→21:21)
--- NOTE | 2018-11-17 08:40 | Infectious Diseases Prog Note ---
Assessment/Plan Assessment/Plan UTI On bactrim at home UA essentially negative Right Hip Fx HTN Parkinsonism Chronic prostate issues. Back surgery PLAN - Continue Bactrim # 4 /7 (End date 11/20/18) - Monitor CBC and Temps We will continue to follow the patient during this hospitalization. Subjective Allergies: Coded Allergies: Horse Serum Proteins (Unverified Allergy, Unknown, Anaphylaxis, 02/10/18) PENICILLINS (Verified Allergy, Unknown, 02/10/18) Uncoded Allergies: HAY FEVER (Allergy, Unknown, 02/10/18) Subjective Patient awake and alert No complaints today Hip pain controlled Objective Vital Signs Last 24 Hour Vital Signs Date Time Temp Pulse Resp B/P (MAP) Pulse Ox O2 Delivery O2 Flow Rate FiO2 11/17/18 08:36 79 116/70 11/17/18 08:35 116/70 11/17/18 08:00 98.1 79 18 116/70 (85) 96 11/17/18 04:00 72 11/17/18 04:00 97.2 74 18 123/61 (81) 95 11/17/18 00:00 70 11/17/18 00:00 97.8 72 19 124/66 (85) 96 11/16/18 21:00 Room Air 11/16/18 20:51 97 145/63 11/16/18 20:00 70 11/16/18 20:00 97.8 70 18 145/63 (90) 97 11/16/18 16:00 97.8 73 16 139/65 (89) 96 11/16/18 16:00 72 11/16/18 12:00 98.0 66 16 123/66 (85) 95 11/16/18 12:00 66 11/16/18 09:00 Room Air 11/16/18 08:43 113/66 11/16/18 08:42 79 113/66 Height (Feet): 5 Height (Inches): 10.00 Weight (Pounds): 160 Objective Gen: NAD, Thin, alert HEENT: NCAT, MMM, EOMI LUNGS: CTAB, No W CARDS: RRR, S1, S2, No M/R/G, ABD: Soft, NT, ND, + BS Ext: C/C/E, Pulses 2+ B/L (DP, Rad): Right hip tender NEURO: A/O x 2, Strength and Sensation Grossly intact, Mild tremor Microbiology Date/Time Source Procedure Growth Status 11/15/18 05:00 Urine,Clean Catch Urine Culture - Preliminary NO GROWTH AFTER 24 HOURS Resulted Laboratory Tests Test 11/16/18 13:00 11/17/18 06:50 Urine Color Yellow Urine Appearance Slightly cloudy Urine pH 5 (4.5-8.0) Urine Specific [place] 1.015 (1.005-1.035) Urine Protein 3+ (NEGATIVE) H Urine Glucose (UA) Negative (NEGATIVE) Urine Ketones 1+ (NEGATIVE) H Urine Blood 5+ (NEGATIVE) H Urine Nitrite Negative (NEGATIVE) Urine Bilirubin Negative (NEGATIVE) Urine Urobilinogen 1 MG/DL (0.0-1.0) H Urine Leukocyte Esterase 2+ (NEGATIVE) H Urine RBC 40-60 /HPF (0 - 0) H Urine WBC 2-4 /HPF (0 - 0) Urine Squamous Epithelial Cells Occasional /LPF Urine Bacteria Few /HPF (NONE) Urine Osmolality 435 mOsm/kg (429-449) Urine Random Sodium 34 mmol/L (20-110) White Blood Count 5.9 K/UL (4.8-10.8) Red Blood Count 2.97 M/UL (4.70-6.10) L Hemoglobin 9.8 G/DL (14.2-18.0) L Hematocrit 27.2 % (42.0-52.0) L Mean Corpuscular Volume 91 FL (80-99) Mean Corpuscular Hemoglobin 33.1 PG (27.0-31.0) H Mean Corpuscular Hemoglobin Concent 36.3 G/DL (32.0-36.0) H Red Cell Distribution Width 10.6 % (11.6-14.8) L Platelet Count 96 K/UL (150-450) L Mean Platelet Volume 7.9 FL (6.5-10.1) Neutrophils (%) (Auto) % (45.0-75.0) Lymphocytes (%) (Auto) % (20.0-45.0) Monocytes (%) (Auto) % (1.0-10.0) Eosinophils (%) (Auto) % (0.0-3.0) Basophils (%) (Auto) % (0.0-2.0) Neutrophils % (Manual) Pending Lymphocytes % (Manual) Pending Platelet Estimate Pending Platelet Morphology Pending Sodium Level 128 MMOL/L (136-145) L Potassium Level 3.9 MMOL/L (3.5-5.1) Chloride Level 95 MMOL/L (98-107) L Carbon Dioxide Level 23 MMOL/L (21-32) Anion Gap 10 mmol/L (5-15) Blood Urea Nitrogen 17 mg/dL (7-18) Creatinine 1.1 MG/DL (0.55-1.30) Estimat Glomerular Filtration Rate mL/min (>60) Glucose Level 115 MG/DL (74-106) H Calcium Level 8.7 MG/DL (8.5-10.1) Current Medications Medications (Trade) Dose Ordered Sig/Marie Route PRN Reason Start Time Stop Time Status Last Admin Dose Admin Acetaminophen (Tylenol) 650 mg Q4H PRN ORAL fever 11/15/18 09:15 12/15/18 09:14 Al Hydroxide/Mg Hydroxide (Mylanta II) 30 ml Q6H PRN ORAL dyspepsia 11/15/18 09:15 12/15/18 09:14 Aspirin (Ecotrin) 81 mg DAILY ORAL 11/15/18 14:15 12/15/18 14:14 11/17/18 08:35 Atorvastatin Calcium (Lipitor) 40 mg BEDTIME ORAL 11/15/18 21:00 12/15/18 20:59 11/16/18 20:50 Cyclobenzaprine HCl (Flexeril) 10 mg QID ORAL 11/15/18 13:00 12/15/18 12:59 11/17/18 08:36 Dextrose (Dextrose 50%) 25 ml Q30M PRN IV Hypoglycemia 11/15/18 09:15 12/15/18 09:14 Dextrose (Dextrose 50%) 50 ml Q30M PRN IV Hypoglycemia 11/15/18 09:15 12/15/18 09:14 Lorazepam (Ativan 2mg/ml 1ml) 0.5 mg Q4H PRN IV For Anxiety 11/15/18 09:15 11/22/18 09:14 11/17/18 00:27 Losartan Potassium (Cozaar) 25 mg DAILY ORAL 11/16/18 09:00 12/16/18 08:59 11/17/18 08:35 Metoprolol Tartrate (Lopressor) 50 mg EVERY 12 HOURS ORAL 11/15/18 21:00 12/15/18 20:59 11/17/18 08:36 Morphine Sulfate (Morphine Sulfate) 1 mg Q4H PRN IVP For Pain 11/15/18 09:15 11/22/18 09:14 11/15/18 17:31 Ondansetron HCl (Zofran) 4 mg Q6H PRN IVP Nausea & Vomiting 11/15/18 09:15 12/15/18 09:14 Polyethylene Glycol (Miralax) 17 gm HSPRN PRN ORAL Constipation 11/15/18 09:15 12/15/18 09:14 Tamsulosin HCl (Flomax) 0.4 mg BEDTIME ORAL 11/16/18 21:00 12/16/18 20:59 11/16/18 20:51 Trimethoprim/ Sulfamethoxazole (Bactrim-DS) 1 tab TWICE A DAY ORAL 11/16/18 12:20 11/20/18 17:59 11/17/18 08:35 Zolpidem Tartrate (Ambien) 5 mg HSPRN PRN ORAL Insomnia 11/15/18 09:15 11/22/18 09:14 Justice Kelsey MD Nov 17, 2018 08:40
--- NOTE | 2018-11-17 09:12 | NUR ---
NURSE NOTES: left a message to dr triplett regarding patients request for docusate and metamucil. awaitng call back and new orders as of this time.
--- NOTE | 2018-11-17 09:16 | Nephrology Progress Note ---
Assessment/Plan Assessment 1. Hyponatremia most likely as a result of the hydrochlorothiazide that patient was no. 2. Acute versus chronic renal failure. The etiology of acute renal failure ATN due to unstable hemodynamics. Rhabdomyolysis is another possibility of increasing of creatinine. 3. Status post fall. 4. Hypertension. 5. CAD. 6. Dyslipidemia. Plan free water restriction 1000 ml /day monitoring renal function start flomax replace electrolyte as need it Subjective Constitutional: Reports: no symptoms HEENT: Reports: no symptoms Genitourinary: Reports: no symptoms Neurologic/Psychiatric: Reports: no symptoms Subjective alert and awake no complaints Objective Objective Last 24 Hour Vital Signs Date Time Temp Pulse Resp B/P (MAP) Pulse Ox O2 Delivery O2 Flow Rate FiO2 11/17/18 09:06 98.1 11/17/18 09:00 Room Air 11/17/18 08:36 79 116/70 11/17/18 08:35 116/70 11/17/18 08:00 98.1 79 18 116/70 (85) 96 11/17/18 04:00 72 11/17/18 04:00 97.2 74 18 123/61 (81) 95 11/17/18 00:00 70 11/17/18 00:00 97.8 72 19 124/66 (85) 96 11/16/18 21:00 Room Air 11/16/18 20:51 97 145/63 11/16/18 20:00 70 11/16/18 20:00 97.8 70 18 145/63 (90) 97 11/16/18 16:00 97.8 73 16 139/65 (89) 96 11/16/18 16:00 72 11/16/18 12:00 98.0 66 16 123/66 (85) 95 11/16/18 12:00 66 Intake and Output 11/16/18 11/17/18 18:59 06:59 Intake Total 480 ml Output Total 500 ml Balance -20 ml Intake Oral 480 ml Output Urine Total 500 ml # Voids 5 Laboratory Tests 11/16/18 13:00: Urine Color Yellow, Urine Appearance Slightly cloudy, Urine pH 5, Urine Specific [place] 1.015, Urine Protein 3+H, Urine Glucose (UA) Negative, Urine Ketones 1+H, Urine Blood 5+H, Urine Nitrite Negative, Urine Bilirubin Negative, Urine Urobilinogen 1H, Urine Leukocyte Esterase 2+H, Urine RBC 40-60H, Urine WBC 2-4, Urine Squamous Epithelial Cells Occasional, Urine Bacteria Few, Urine Osmolality 435, Urine Random Sodium 34 11/17/18 06:50: White Blood Count 5.9, Red Blood Count 2.97L, Hemoglobin 9.8L, Hematocrit 27.2L , Mean Corpuscular Volume 91, Mean Corpuscular Hemoglobin 33.1H, Mean Corpuscular Hemoglobin Concent 36.3H, Red Cell Distribution Width 10.6L, Platelet Count 96L, Mean Platelet Volume 7.9, Neutrophils (%) (Auto) , Lymphocytes (%) (Auto) , Monocytes (%) (Auto) , Eosinophils (%) (Auto) , Basophils (%) (Auto) , Neutrophils % (Manual) [Pending], Lymphocytes % (Manual) [Pending], Platelet Estimate [Pending], Platelet Morphology [Pending], Sodium Level 128L, Potassium Level 3.9, Chloride Level 95L, Carbon Dioxide Level 23, Anion Gap 10, Blood Urea Nitrogen 17, Creatinine 1.1, Estimat Glomerular Filtration Rate , Glucose Level 115H, Calcium Level 8.7 Height (Feet): 5 Height (Inches): 10.00 Weight (Pounds): 160 Objective HEAD AND NECK: No JVP. No LAD. No thyromegaly. Extraocular movement intact. Pupils are reactive to light and accommodation. LUNGS: Clear to auscultation. CARDIAC: Regular rate and rhythm. S1 and S2. No murmur. No rub. ABDOMEN: Soft, nontender, and nondistended. EXTREMITIES: Has bruising in the right hip otherwise negative Kristina Weber MD Nov 17, 2018 09:16
[2018-11-17] MEDS ORDERED: Metamucil Pkt ORAL PRN (10:00)
--- NOTE | 2018-11-17 10:45 | Pulmonology Progress Note ---
Assessment/Plan Problems: (1) Pelvic fracture (2) History of hypertension (3) Anemia (4) Hyponatremia Assessment/Plan all reviewed doing better f/u Na rule out SIADH, ? to pain anemia w/u in process. dvt prophylaxis. d/w son and pt is improving could go to rehab Subjective ROS Limited/Unobtainable: No Interval Events: mental status better than yesterday Allergies: Coded Allergies: Horse Serum Proteins (Unverified Allergy, Unknown, Anaphylaxis, 02/10/18) PENICILLINS (Verified Allergy, Unknown, 02/10/18) Uncoded Allergies: HAY FEVER (Allergy, Unknown, 02/10/18) Objective Last 24 Hour Vital Signs Date Time Temp Pulse Resp B/P (MAP) Pulse Ox O2 Delivery O2 Flow Rate FiO2 11/17/18 09:06 98.1 11/17/18 09:00 Room Air 11/17/18 08:36 79 116/70 11/17/18 08:35 116/70 11/17/18 08:00 83 11/17/18 08:00 98.1 79 18 116/70 (85) 96 11/17/18 04:00 72 11/17/18 04:00 97.2 74 18 123/61 (81) 95 11/17/18 00:00 70 11/17/18 00:00 97.8 72 19 124/66 (85) 96 11/16/18 21:00 Room Air 11/16/18 20:51 97 145/63 11/16/18 20:00 70 11/16/18 20:00 97.8 70 18 145/63 (90) 97 11/16/18 16:00 97.8 73 16 139/65 (89) 96 11/16/18 16:00 72 11/16/18 12:00 98.0 66 16 123/66 (85) 95 11/16/18 12:00 66 Intake and Output 11/16/18 11/17/18 18:59 06:59 Intake Total 480 ml Output Total 500 ml Balance -20 ml Intake Oral 480 ml Output Urine Total 500 ml # Voids 5 General Appearance: WD/WN HEENT: normocephalic, atraumatic Respiratory/Chest: chest wall non-tender, lungs clear, normal breath sounds Cardiovascular: normal peripheral pulses, normal rate Abdomen: normal bowel sounds Genitourinary: normal external genitalia Skin: no rash, no lesions Neurologic/Psychiatric: stone cutter II-XII grossly normal Microbiology Date/Time Source Procedure Growth Status 11/15/18 05:00 Urine,Clean Catch Urine Culture - Preliminary NO GROWTH AFTER 24 HOURS Resulted Laboratory Tests 11/16/18 13:00: Urine Color Yellow, Urine Appearance Slightly cloudy, Urine pH 5, Urine Specific [place] 1.015, Urine Protein 3+H, Urine Glucose (UA) Negative, Urine Ketones 1+H, Urine Blood 5+H, Urine Nitrite Negative, Urine Bilirubin Negative, Urine Urobilinogen 1H, Urine Leukocyte Esterase 2+H, Urine RBC 40-60H, Urine WBC 2-4, Urine Squamous Epithelial Cells Occasional, Urine Bacteria Few, Urine Osmolality 435, Urine Random Sodium 34 11/17/18 06:50: White Blood Count 5.9, Red Blood Count 2.97L, Hemoglobin 9.8L, Hematocrit 27.2L , Mean Corpuscular Volume 91, Mean Corpuscular Hemoglobin 33.1H, Mean Corpuscular Hemoglobin Concent 36.3H, Red Cell Distribution Width 10.6L, Platelet Count 96L, Mean Platelet Volume 7.9, Neutrophils (%) (Auto) , Lymphocytes (%) (Auto) , Monocytes (%) (Auto) , Eosinophils (%) (Auto) , Basophils (%) (Auto) , Differential Total Cells Counted 100, Neutrophils % ( Manual) 73, Lymphocytes % (Manual) 13L, Monocytes % (Manual) 12H, Eosinophils % (Manual) 1, Basophils % (Manual) 1, Band Neutrophils 0, Platelet Estimate DecreasedL, Platelet Morphology Normal, Hypochromasia 2+, Anisocytosis 1+, Spherocytes 3+, Sodium Level 128L, Potassium Level 3.9, Chloride Level 95L, Carbon Dioxide Level 23, Anion Gap 10, Blood Urea Nitrogen 17, Creatinine 1.1, Estimat Glomerular Filtration Rate , Glucose Level 115H, Calcium Level 8.7 Current Medications Medications (Trade) Dose Ordered Sig/Marie Route PRN Reason Start Time Stop Time Status Last Admin Dose Admin Acetaminophen (Tylenol) 650 mg Q4H PRN ORAL fever 11/15/18 09:15 12/15/18 09:14 Al Hydroxide/Mg Hydroxide (Mylanta II) 30 ml Q6H PRN ORAL dyspepsia 11/15/18 09:15 12/15/18 09:14 Aspirin (Ecotrin) 81 mg DAILY ORAL 11/15/18 14:15 12/15/18 14:14 11/17/18 08:35 Atorvastatin Calcium (Lipitor) 40 mg BEDTIME ORAL 11/15/18 21:00 12/15/18 20:59 11/16/18 20:50 Cyclobenzaprine HCl (Flexeril) 10 mg QID ORAL 11/15/18 13:00 12/15/18 12:59 11/17/18 08:36 Dextrose (Dextrose 50%) 25 ml Q30M PRN IV Hypoglycemia 11/15/18 09:15 12/15/18 09:14 Dextrose (Dextrose 50%) 50 ml Q30M PRN IV Hypoglycemia 11/15/18 09:15 12/15/18 09:14 Docusate Sodium (Colace) 100 mg THREE TIMES A DAY ORAL 11/17/18 13:00 12/17/18 12:59 Lorazepam (Ativan 2mg/ml 1ml) 0.5 mg Q4H PRN IV For Anxiety 11/15/18 09:15 11/22/18 09:14 11/17/18 00:27 Losartan Potassium (Cozaar) 25 mg DAILY ORAL 11/16/18 09:00 12/16/18 08:59 11/17/18 08:35 Metoprolol Tartrate (Lopressor) 50 mg EVERY 12 HOURS ORAL 11/15/18 21:00 12/15/18 20:59 11/17/18 08:36 Morphine Sulfate (Morphine Sulfate) 1 mg Q4H PRN IVP For Pain 11/15/18 09:15 11/22/18 09:14 11/15/18 17:31 Ondansetron HCl (Zofran) 4 mg Q6H PRN IVP Nausea & Vomiting 11/15/18 09:15 12/15/18 09:14 Polyethylene Glycol (Miralax) 17 gm HSPRN PRN ORAL Constipation 11/15/18 09:15 12/15/18 09:14 Psyllium Hydrophilic Mucilloid (Metamucil) 1 pkt DAILY ORAL 11/18/18 09:00 12/18/18 08:59 Tamsulosin HCl (Flomax) 0.4 mg BEDTIME ORAL 11/16/18 21:00 12/16/18 20:59 11/16/18 20:51 Trimethoprim/ Sulfamethoxazole (Bactrim-DS) 1 tab Q12HR ORAL 11/17/18 21:00 11/20/18 23:00 Zolpidem Tartrate (Ambien) 5 mg HSPRN PRN ORAL Insomnia 11/15/18 09:15 11/22/18 09:14 Karen Maria MD Nov 17, 2018 10:44
[2018-11-17] MEDS ORDERED: LOSARTAN POTASS25 MG ORAL (10:48)
--- NOTE | 2018-11-17 11:23 | NUR ---
DISCHARGE PLANNING PATIENT HAS BEEN REFERRED TO: [facility] P:[phone] F:[phone]
[2018-11-17 12:00] VITALS: BP 127/68
[2018-11-17] MEDS: Docusate 100mg cap ORAL SCH ×2 (14:09→17:10)
--- NOTE | 2018-11-17 15:26 | General Progress Note ---
Assessment/Plan Problem List: (1) Fall ICD Codes: W19.XXXA - Unspecified fall, initial encounter SNOMED: 4757499, 568504589 (2) Hip pain ICD Codes: M25.559 - Pain in unspecified hip SNOMED: 41595530 (3) History of hypertension ICD Codes: Z86.79 - Personal history of other diseases of the circulatory system SNOMED: 160755640 (4) Pelvic fracture ICD Codes: S32.9XXA - Fracture of unspecified parts of lumbosacral spine and pelvis, initial encounter for closed fracture SNOMED: 09131799 (5) Anemia ICD Codes: D64.9 - Anemia, unspecified SNOMED: 957130106 (6) Hyponatremia ICD Codes: E87.1 - Hypo-osmolality and hyponatremia SNOMED: 75790785 Status: unchanged Assessment/Plan pain control ortho f/u neph f/u cbc bmp am transfer pt to Subjective Constitutional: Reports: weakness Allergies: Coded Allergies: Horse Serum Proteins (Unverified Allergy, Unknown, Anaphylaxis, 02/10/18) PENICILLINS (Verified Allergy, Unknown, 02/10/18) Uncoded Allergies: HAY FEVER (Allergy, Unknown, 02/10/18) All Systems: reviewed and negative except above Subjective calm in bed Objective Last 24 Hour Vital Signs Date Time Temp Pulse Resp B/P (MAP) Pulse Ox O2 Delivery O2 Flow Rate FiO2 11/17/18 12:00 97.5 70 18 127/68 (87) 97 11/17/18 11:35 69 11/17/18 09:06 98.1 11/17/18 09:00 Room Air 11/17/18 08:36 79 116/70 11/17/18 08:35 116/70 11/17/18 08:00 83 11/17/18 08:00 98.1 79 18 116/70 (85) 96 11/17/18 04:00 72 11/17/18 04:00 97.2 74 18 123/61 (81) 95 11/17/18 00:00 70 11/17/18 00:00 97.8 72 19 124/66 (85) 96 11/16/18 21:00 Room Air 11/16/18 20:51 97 145/63 11/16/18 20:00 70 11/16/18 20:00 97.8 70 18 145/63 (90) 97 11/16/18 16:00 97.8 73 16 139/65 (89) 96 11/16/18 16:00 72 Intake and Output 11/16/18 11/17/18 19:00 07:00 Intake Total 480 ml Output Total 500 ml Balance -20 ml Intake Oral 480 ml Output Urine Total 500 ml # Voids 5 Laboratory Tests 11/17/18 06:50: White Blood Count 5.9, Red Blood Count 2.97L, Hemoglobin 9.8L, Hematocrit 27.2L , Mean Corpuscular Volume 91, Mean Corpuscular Hemoglobin 33.1H, Mean Corpuscular Hemoglobin Concent 36.3H, Red Cell Distribution Width 10.6L, Platelet Count 96L, Mean Platelet Volume 7.9, Neutrophils (%) (Auto) , Lymphocytes (%) (Auto) , Monocytes (%) (Auto) , Eosinophils (%) (Auto) , Basophils (%) (Auto) , Differential Total Cells Counted 100, Neutrophils % ( Manual) 73, Lymphocytes % (Manual) 13L, Monocytes % (Manual) 12H, Eosinophils % (Manual) 1, Basophils % (Manual) 1, Band Neutrophils 0, Platelet Estimate DecreasedL, Platelet Morphology Normal, Hypochromasia 2+, Anisocytosis 1+, Spherocytes 3+, Sodium Level 128L, Potassium Level 3.9, Chloride Level 95L, Carbon Dioxide Level 23, Anion Gap 10, Blood Urea Nitrogen 17, Creatinine 1.1, Estimat Glomerular Filtration Rate , Glucose Level 115H, Calcium Level 8.7 Height (Feet): 5 Height (Inches): 10.00 Weight (Pounds): 160 General Appearance: lethargic EENT: normal ENT inspection Neck: normal alignment Cardiovascular: normal peripheral pulses, normal rate, regular rhythm Respiratory/Chest: chest wall non-tender, lungs clear, normal breath sounds Abdomen: normal bowel sounds, non tender, soft Extremities: normal inspection Edema: no edema noted Arm (L), no edema noted Arm (R), no edema noted Leg (L), no edema noted Leg (R), no edema noted Pedal (L), no edema noted Pedal (R), no edema noted Generalized Neurologic: motor weakness Skin: normal pigmentation, warm/dry João Danielson DO Nov 17, 2018 15:26
[2018-11-17 16:00] VITALS: BP 147/80
--- NOTE | 2018-11-17 16:29 | NUR ---
NURSE NOTES: family member spoke with bhavesh ruiz regarding transfer to [facility]. PT eval stat ordered to evaluate patient to transfer to [facility], but unfortunately Physical Therapist left already at this time.
--- NOTE | 2018-11-17 16:50 | NUR ---
GENERAL I FARMWORKER NOTES SPOKE WITH PAT FROM [facility], PT ACCEPTANCE PENDING PT EVAL. SPOKE WITH FAMILY MADE AWARE OF PENDING PT EVAL FOR TRANSFER. MRS MOTA VERBALIZED UNDERSTANDING. PT EVAL TO BE DONE IN AM AND FAXED TO [facility] WILL FOLLOW UP IN AM.
--- NOTE | 2018-11-17 19:30 | NUR ---
NURSE NOTES: Received pt. and report from EMILIANO Kruse. Pt. is resting in bed with family members at bedside. Pt. is confused and agitated; A/O x2. Family members no longer want pt. to receive any pain meds, Ativan, or sleeping aids. quality assurance monitor chassis is in placed, IV site is intact, asymptomatic, and patent. Pt has a ma placed; 16 croatian for retention. Bed is in the lowest position and locked. Call light within reach. No acute distress noted at this time. Will continue plan of care.
[2018-11-17 20:00] VITALS: BP 131/80
--- NOTE | 2018-11-17 20:49 | Consultation ---
Consult Note Consult Note NEUROLOGY CONSULTATION: Full note dictated #[id number] 78 y/o, RH, CM with PH of HTN, CAD, LS spinal stenosis s/p surgery, and prior delirious episodes associated with anesthesia, and steroid use. On 11/15/18 he fell down at home and sustained a right acetabular fracture. Since he has been in the hospital he has been given MS, Flexeril 10 mg qid, and he got a single dose of Ativan. He has been delirious since this morning. ON EXAM: Problems with orientation, memory, HCF No focal dysfunction. Globally diminished DTRs IMPRESSION: Possible drug induced delirium. REC: Stop MS, Flexeril and Ativan. Haldol 1 mg IV now. Observe. Labs for AMS Driss Campbell M.D., M.S.P.H. Driss Campbell MD Nov 17, 2018 20:49
[2018-11-17] MEDS ORDERED: HALOPERIDOL LACTATE IVPB ONE (21:00)
[2018-11-17] MEDS ORDERED: D5W IVPB ONE (21:00)
--- NOTE | 2018-11-17 21:00 | NUR ---
Received Haldol 1mg IVPB order from Dr. Campbell. Confirmed with pharmacist, Elsie.
[2018-11-17] MEDS: Atorvastatin 20mg tab ORAL SCH (21:22)
[2018-11-17] MEDS: Tamsulosin 0.4mg cap ORAL SCH (21:22)
--- NOTE | 2018-11-17 21:30 | NUR ---
NURSE NOTES: Spoke to sonLarry regarding Fexeril and if pt. takes it regularly at home. Son confirmed it with pt's and she said no. Told son and that it could be Fexeril that may be causing his confusion since it is a new medication that he is taking. Son and refused [address] Campbell discontinued Fexeril. Will continue to monitor.
--- NOTE | 2018-11-17 22:15 | Consultation ---
DATE OF CONSULTATION: 11/17/2018 NEUROLOGY CONSULTATION CONSULTING PHYSICIAN: Driss Campbell M.D. REFERRING PHYSICIAN: João Danielson D.O. HISTORY: Mr. Eddy Sims is an 78-year-old, right-handed, gentleman, who does have a past history of hypertension, coronary artery disease, lumbosacral spinal stenosis for which he had surgery, and prior delirious episodes associated with anesthesia and steroid use. He was functioning relatively well until 11/15/2018 when he fell down at home and sustained a right acetabular fracture, which was nondisplaced. A decision was made to treat the fracture conservatively. Since he has been in the hospital, he has been given morphine sulfate, Flexeril 10 mg four times a day, and he got a single dose of Ativan. Since this morning he has been noted to be exceedingly delirious. He is confused, disoriented, reaching out for things, acting as if he is driving a car, and behaving in an unusual manner. This consultation was thus requested to evaluate the patient for his altered mental state. PAST MEDICAL HISTORY: Significant for hypertension, coronary artery disease, lumbosacral spinal stenosis status post surgery, prior delirious episodes associated with anesthesia and steroid use. FAMILY HISTORY: Nothing significant. PERSONAL HISTORY: Home: He lives at home with his . 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 Habits: He used to smoke numerous years ago. He has a rare alcoholic drink. There is no history of any illicit drug use. PRESENT MEDICATIONS: Metamucil, Bactrim, Flomax, losartan, Lipitor, metoprolol, aspirin, Flexeril 10 mg four times a day, Tylenol p.r.n., morphine p.r.n., Zofran p.r.n., Ambien p.r.n., lorazepam the last dose of which was given to him in the early hours of today, and Mylanta. PHYSICAL EXAMINATION: GENERAL: He is a well-developed, well-nourished, pleasant gentleman, acting in a bizarre manner, grasping at things that do not exist, and acting like he is driving a car. VITAL SIGNS: Pulse 77/minute, blood pressure 147/80 mmHg, respirations 18/minute, and temperature 98.2 degrees Fahrenheit. HEAD: Normocephalic and atraumatic. EENT: Examination benign. NECK: No neck rigidity was observed. NEUROLOGIC EXAMINATION: MENTAL STATUS EXAMINATION: He was awake and alert, but behaving in an unusual manner. He was oriented to self only. He was able to recall 3/3 words immediately, but could not remember them in 1 minute and 3 minutes. He knew that Robinson is president, but could not remember presidents prior to that. His higher cognitive function was impaired. SPEECH: He had a mild dysarthria. LANGUAGE: Could not be tested adequately. CRANIAL NERVE EXAMINATION: II: The visual diaz were intact on confrontation testing. III, IV & : External ocular movements were full and the pupils 3 mm in diameter, equal, round, regular, and reactive to light. V: He had normal facial sensations and the temporales, masseters, and pterygoids functioned normally. VII: He had normal facial expressions and no facial asymmetry VIII: He was able to hear well bilaterally and had no nystagmus. IX: The palate moved symmetrically on phonation. X: He had no hoarseness of voice. XI: The sternocleidomastoids and trapezii functioned normally. XII: The tongue was in the midline without any fasciculations or atrophy. MOTOR SYSTEM: The tone was normal in all four extremities. Examination of muscle mass revealed no focal wasting. Examination of power revealed G 5/5 power in both upper extremities and in the left lower extremity. Power could not be tested accurately in the proximal right lower extremity. He had G 5/5 power in the distal right lower extremity. SENSORY EXAMINATION: He responded appropriately to light touch. REFLEXES: Trace+ and bilaterally symmetrical at the biceps, triceps, and brachioradialis. 0 at both knees and ankles. The plantar responses were flexor bilaterally. COORDINATION, STANCE & GAIT: Could not be tested. DIAGNOSTIC IMPRESSION: 1. Mr. Eddy Sims is an 78-year-old, right-handed, gentleman, with past history of hypertension, coronary artery disease, and lumbosacral spinal stenosis, who is status post surgery and prior delirious episodes associated with anesthesia and steroid use, who on 11/15/2018 fell down at home and sustained a right acetabular fracture. He was brought into [facility] and since he has been here he has been given multiple different drugs including morphine sulfate, Flexeril 10 mg four times a day, and Ativan in a single dose in the early hours of today. He has been noted to be significantly delirious since this morning. 2. On neurological examination at this time, he is responding to internal stimuli, has significant problems with orientation, memory, and higher cognitive function. He, however, does not demonstrate any focal or lateralizing findings. His deep tendon reflexes are diminished in the upper extremities and lost in the lower extremities. 3. Laboratory data obtained thus far have revealed that he is anemic with a hemoglobin of 9.8 G. His chemistry panel reveals that he is hyponatremic with a sodium of 128, the glucose elevated to 115, and his albumin that is low at 3.2. His TSH is normal at 1.56. His free T4 is also normal at 1.17, but his T3 is minimally low at 1.9. His a.m. cortisol level was 9.9. His urinalysis reveals 2+ leukocyte esterase, 40-60 red blood cells, and 2-4 white blood cells per high-power field. 4. The patient's history and neurological examination are most compatible with a possible drug-induced delirium. There is also a possibility that the urinary tract infection and hyponatremia could be contributing to it. RECOMMENDATIONS: 1. Agree with management thus far. 2. Would stop morphine sulfate, Flexeril and Ativan. 3. The patient will be given Haldol 1 mg intravenously now. 4. The patient's hyponatremia should be corrected. 5. The patient's urinary tract infection should be treated aggressively. 6. The patient should be observed closely and depending on how he fares over the next day or so further recommendations will be given. Thank you for entrusting me with the care of Mr. Sims. I shall follow him with you. Driss Campbell M.D., M.S.P.H. : [facility] JOB#: [id number] MTDD
--- NOTE | 2018-11-17 23:59 | Cardiology Progress Note ---
Assessment/Plan Assessment/Plan 1. History of coronary artery disease, status post coronary artery bypass graft surgery, 2D echo reveals normal LVEF at 55%, 12-lead electrocardiogram does not show any evidence of ischemia. Prior to this event, the patient did not have any cardiac symptoms such as exertional chest pain or dyspnea on exertion, continue the patient on aspirin and statins. 2. History of hypertension, continue losartan and metoprolol. 3. Right pelvic fracture, plan is for non-operative management. Subjective Subjective Sinus rhythm at rate of 88. Objective Last 24 Hour Vital Signs Date Time Temp Pulse Resp B/P (MAP) Pulse Ox O2 Delivery O2 Flow Rate FiO2 11/17/18 21:21 88 131/80 11/17/18 21:00 Room Air 11/17/18 20:00 90 11/17/18 20:00 98.4 88 16 131/80 (97) 98 11/17/18 16:00 98.2 77 18 147/80 (102) 97 11/17/18 15:44 73 11/17/18 12:00 97.5 70 18 127/68 (87) 97 11/17/18 11:35 69 11/17/18 09:06 98.1 11/17/18 09:00 Room Air 11/17/18 08:36 79 116/70 11/17/18 08:35 116/70 11/17/18 08:00 83 11/17/18 08:00 98.1 79 18 116/70 (85) 96 11/17/18 04:00 72 11/17/18 04:00 97.2 74 18 123/61 (81) 95 11/17/18 00:00 70 11/17/18 00:00 97.8 72 19 124/66 (85) 96 Intake and Output 11/16/18 11/17/18 18:59 06:59 Intake Total 480 ml Output Total 500 ml Balance -20 ml Intake Oral 480 ml Output Urine Total 500 ml # Voids 5 2D Echo: LVEF 55%, Mild LIMA, Mild LVH, Mild MR, RVSP 15 mmHg, Grade I LVDD Laboratory Tests Test 11/17/18 06:50 White Blood Count 5.9 K/UL (4.8-10.8) Red Blood Count 2.97 M/UL (4.70-6.10) L Hemoglobin 9.8 G/DL (14.2-18.0) L Hematocrit 27.2 % (42.0-52.0) L Mean Corpuscular Volume 91 FL (80-99) Mean Corpuscular Hemoglobin 33.1 PG (27.0-31.0) H Mean Corpuscular Hemoglobin Concent 36.3 G/DL (32.0-36.0) H Red Cell Distribution Width 10.6 % (11.6-14.8) L Platelet Count 96 K/UL (150-450) L Mean Platelet Volume 7.9 FL (6.5-10.1) Neutrophils (%) (Auto) % (45.0-75.0) Lymphocytes (%) (Auto) % (20.0-45.0) Monocytes (%) (Auto) % (1.0-10.0) Eosinophils (%) (Auto) % (0.0-3.0) Basophils (%) (Auto) % (0.0-2.0) Differential Total Cells Counted 100 Neutrophils % (Manual) 73 % (45-75) Lymphocytes % (Manual) 13 % (20-45) L Monocytes % (Manual) 12 % (1-10) H Eosinophils % (Manual) 1 % (0-3) Basophils % (Manual) 1 % (0-2) Band Neutrophils 0 % (0-8) Platelet Estimate Decreased L Platelet Morphology Normal Hypochromasia 2+ Anisocytosis 1+ Spherocytes 3+ Sodium Level 128 MMOL/L (136-145) L Potassium Level 3.9 MMOL/L (3.5-5.1) Chloride Level 95 MMOL/L (98-107) L Carbon Dioxide Level 23 MMOL/L (21-32) Anion Gap 10 mmol/L (5-15) Blood Urea Nitrogen 17 mg/dL (7-18) Creatinine 1.1 MG/DL (0.55-1.30) Estimat Glomerular Filtration Rate mL/min (>60) Glucose Level 115 MG/DL (74-106) H Calcium Level 8.7 MG/DL (8.5-10.1) Microbiology Date/Time Source Procedure Growth Status 11/15/18 05:00 Urine,Clean Catch Urine Culture - Preliminary NO GROWTH AFTER 24 HOURS Resulted Objective HEENT: Atraumatic and normocephalic. Anicteric. Pupils are equal, round, and reactive to light and accommodation. Extraocular muscles intact. NECK: JVP less than 5 cm. No carotid bruit. Carotid upstroke is 2+ bilaterally. CVS: Distant S1 and S2. No murmurs, gallops, or rubs. PMI is at fourth intercostal space at the midclavicular. LUNGS: Clear to auscultation bilaterally. ABDOMEN: Soft, nontender, and nondistended. No hepatosplenomegaly. Positive bowel sounds. EXTREMITIES: No evidence of edema, clubbing, or cyanosis. Yovany Henson MD Nov 17, 2018 23:59
[2018-11-18] VITALS: BP 130/94
[2018-11-18 04:00] VITALS: BP 125/74
--- NOTE | 2018-11-18 07:45 | NUR ---
NURSE NOTES: Report received from EMILIANO Marinelli. Patients's door closed. Spouse came out "Please don't wake him up. He had been feeling terrible the night before. I guess he was having some kind of allergic rxn to some medication he has been given. Finally they gave him haldol and he is able to sleep a little bit. Please wait as much as you can to take BP. Also, please follow up with PT for us because we are trying to get him to be transferred to [facility]. All of his doctors are there as well as his son who is a doctor." Dr Lopez came in and talked to Spouse as well. Will follow up.
[2018-11-18 08:00] VITALS: BP 123/54
--- NOTE | 2018-11-18 08:15 | NUR ---
HAND-OFF: Report given to EMILIANO Butt. Pt. is asleep in bed. Plan of care endorsed.
--- NOTE | 2018-11-18 08:25 | NUR ---
REHAB MED PT NOTE ORDER RECEIVED, SPOKE WITH PATIENT AND NURSE, PATIENT CURRENTLY SLEEPING AT THIS TIME, DOES NOT WISH TO BE DISTURBED AT THIS TIME, HOWEVER WILL COORDINATE WITH NURSING TO SEE PATIENT AT 930 APPROXIMATELY FOR FULL EVAL AND ASSESSMENT TO ASSIST IN RECOMMENDATION TO REHAB FACILITY FOR FURTHER PHYSICAL THERAPY. EVAL TO FOLLOW. FAMILY AGREED. ANNABELLE PATTERSON PT DPT
--- NOTE | 2018-11-18 08:42 | Infectious Diseases Prog Note ---
Assessment/Plan Assessment/Plan UTI On bactrim at home UA essentially negative Right Hip Fx HTN Parkinsonism Chronic prostate issues. Back surgery PLAN - Continue Bactrim # 5 /7 (End date 11/20/18) - Monitor CBC and Temps We will continue to follow the patient during this hospitalization. Subjective Allergies: Coded Allergies: Horse Serum Proteins (Unverified Allergy, Unknown, Anaphylaxis, 02/10/18) PENICILLINS (Verified Allergy, Unknown, 02/10/18) Uncoded Allergies: HAY FEVER (Allergy, Unknown, 02/10/18) Subjective Patient awake Afebrile No Leukocytosis Objective Vital Signs Last 24 Hour Vital Signs Date Time Temp Pulse Resp B/P (MAP) Pulse Ox O2 Delivery O2 Flow Rate FiO2 11/18/18 04:00 98.3 83 18 125/74 (91) 96 11/18/18 03:39 81 11/18/18 00:00 97.6 80 19 130/94 (106) 95 11/18/18 00:00 79 11/17/18 21:21 88 131/80 11/17/18 21:00 Room Air 11/17/18 20:00 90 11/17/18 20:00 98.4 88 16 131/80 (97) 98 11/17/18 16:00 98.2 77 18 147/80 (102) 97 11/17/18 15:44 73 11/17/18 12:00 97.5 70 18 127/68 (87) 97 11/17/18 11:35 69 11/17/18 09:06 98.1 11/17/18 09:00 Room Air Height (Feet): 5 Height (Inches): 10.00 Weight (Pounds): 160 Objective Gen: NAD, Thin, alert HEENT: NCAT, MMM, EOMI LUNGS: CTAB, No W CARDS: RRR, S1, S2 Current Medications Medications (Trade) Dose Ordered Sig/Marie Route PRN Reason Start Time Stop Time Status Last Admin Dose Admin Acetaminophen (Tylenol) 650 mg Q4H PRN ORAL fever 11/15/18 09:15 12/15/18 09:14 Al Hydroxide/Mg Hydroxide (Mylanta II) 30 ml Q6H PRN ORAL dyspepsia 11/15/18 09:15 12/15/18 09:14 Aspirin (Ecotrin) 81 mg DAILY ORAL 11/15/18 14:15 12/15/18 14:14 11/17/18 08:35 Atorvastatin Calcium (Lipitor) 40 mg BEDTIME ORAL 11/15/18 21:00 12/15/18 20:59 11/17/18 21:22 Dextrose (Dextrose 50%) 25 ml Q30M PRN IV Hypoglycemia 11/15/18 09:15 12/15/18 09:14 Dextrose (Dextrose 50%) 50 ml Q30M PRN IV Hypoglycemia 11/15/18 09:15 12/15/18 09:14 Docusate Sodium (Colace) 100 mg THREE TIMES A DAY ORAL 11/17/18 13:00 12/17/18 12:59 11/17/18 17:10 Haloperidol (Haldol) 2.5 mg Q6H PRN ORAL Agitation 11/17/18 19:45 12/17/18 19:44 Losartan Potassium (Cozaar) 25 mg DAILY ORAL 11/16/18 09:00 12/16/18 08:59 11/17/18 08:35 Metoprolol Tartrate (Lopressor) 50 mg EVERY 12 HOURS ORAL 11/15/18 21:00 12/15/18 20:59 11/17/18 21:21 Ondansetron HCl (Zofran) 4 mg Q6H PRN IVP Nausea & Vomiting 11/15/18 09:15 12/15/18 09:14 Polyethylene Glycol (Miralax) 17 gm HSPRN PRN ORAL Constipation 11/15/18 09:15 12/15/18 09:14 Psyllium Hydrophilic Mucilloid (Metamucil) 1 pkt DAILY ORAL 11/18/18 09:00 12/18/18 08:59 Tamsulosin HCl (Flomax) 0.4 mg BEDTIME ORAL 11/16/18 21:00 12/16/18 20:59 11/17/18 21:22 Trimethoprim/ Sulfamethoxazole (Bactrim-DS) 1 tab Q12HR ORAL 11/17/18 21:00 11/20/18 23:00 11/17/18 21:24 Zolpidem Tartrate (Ambien) 5 mg HSPRN PRN ORAL Insomnia 11/15/18 09:15 11/22/18 09:14 Justice Kelsey MD Nov 18, 2018 08:42
[2018-11-18] MEDS ORDERED: Metamucil Pkt ORAL SCH (09:00)
--- NOTE | 2018-11-18 09:11 | Nephrology Progress Note ---
Assessment/Plan Assessment 1. Hyponatremia most likely as a result of the hydrochlorothiazide that patient was no. 2. Acute versus chronic renal failure. The etiology of acute renal failure ATN due to unstable hemodynamics. Rhabdomyolysis is another possibility of increasing of creatinine. 3. Status post fall. 4. Hypertension. 5. CAD. 6. Dyslipidemia. Plan free water restriction 1000 ml /day monitoring renal function start flomax replace electrolyte as need it Subjective Constitutional: Reports: no symptoms HEENT: Reports: no symptoms Genitourinary: Reports: no symptoms Neurologic/Psychiatric: Reports: no symptoms Subjective found to be confused yesterday today he is more alert his in his bedside Objective Objective Last 24 Hour Vital Signs Date Time Temp Pulse Resp B/P (MAP) Pulse Ox O2 Delivery O2 Flow Rate FiO2 11/18/18 04:00 98.3 83 18 125/74 (91) 96 11/18/18 03:39 81 11/18/18 00:00 97.6 80 19 130/94 (106) 95 11/18/18 00:00 79 11/17/18 21:21 88 131/80 11/17/18 21:00 Room Air 11/17/18 20:00 90 11/17/18 20:00 98.4 88 16 131/80 (97) 98 11/17/18 16:00 98.2 77 18 147/80 (102) 97 11/17/18 15:44 73 11/17/18 12:00 97.5 70 18 127/68 (87) 97 11/17/18 11:35 69 Intake and Output 11/17/18 11/18/18 18:59 06:59 Intake Total 700 ml Output Total 1400 ml 600 ml Balance -700 ml -600 ml Intake Oral 700 ml Output Urine Total 1400 ml 600 ml # Bowel Movements 1 1 Height (Feet): 5 Height (Inches): 10.00 Weight (Pounds): 160 Objective HEAD AND NECK: No JVP. No LAD. No thyromegaly. Extraocular movement intact. Pupils are reactive to light and accommodation. LUNGS: Clear to auscultation. CARDIAC: Regular rate and rhythm. S1 and S2. No murmur. No rub. ABDOMEN: Soft, nontender, and nondistended. EXTREMITIES: Has bruising in the right hip otherwise negative Kristina Weber MD Nov 18, 2018 09:11
[2018-11-18] MEDS ORDERED: D5NS 1,000 ML IV SCH (09:45)
[2018-11-18] MEDS: Aspirin EC 81mg tab ORAL SCH (10:09)
[2018-11-18] MEDS: Docusate 100mg cap ORAL SCH ×2 (10:09→13:00)
[2018-11-18] MEDS: Losartan 25mg tab ORAL SCH (10:10)
[2018-11-18] MEDS: Bactrim-DS 1 tab ORAL SCH (10:10)
[2018-11-18] MEDS: Metoprolol Tartrate 50mg tab ORAL SCH (10:11)
--- NOTE | 2018-11-18 10:12 | NUR ---
REHAB MED PT NOTE CONSULT RECEIVED, KACY COMPLETED, SEE CHART FOR FULL ASSESSMENT AND PLAN. PATIENT WILL BENEFIT FROM SKILLED PT DURING STAY FOR RETURN TO PRIOR LEVEL OF FUNCTION. PATIENT WILL REMAIN NWB ON RIGHT LE DUE TO HIP FX PER ORTHO MD RECOMMENDATION. PATIENT WILL BE SEEN FOR THEREX, TRANSFER TRAINING AND PRE GAIT ACTIVITIES. PATIENT LIMITED MILDLY BY COGNITION PRESENTING DIFFICULTY WITH ADHERING TO NWB ON RIGHT LE, THEREFORE EXTRA PRECAUTIONS WILL BE TAKEN TO ASSURE PROPER HEALING OF RIGHT HIP AND NWB TO REMAIN. FALL RISK HIGH. WILL COORDINATE WITH NURSING WITH THERAPY SESSION AND PAIN MANAGEMENT. PATIENT IS VERY PLEASANT MOTIVATE FOR REHAB. CURRENTLY RECOMMEND <3 HOURS REHAB SKILLED PHYSICAL THERAPY FOR RETURN TO PRIOR LEVEL OF FUNCTIONING. PLAN OF CARE INITIATED. PT TO FOLLOW. ANNABELLE PATTERSON PT DPT Addendum: 11/18/18 at 1013 by ANNABELLE PATTERSON PT Amended: Links added.
[2018-11-18 10:16] LABS: BASOPHILS % (AUTO) 0.8 % (0.0-2.0); EOSINOPHILS % (AUTO) 2.2 % (0.0-3.0); HEMATOCRIT 27.3 % (42.0-52.0); HEMOGLOBIN 9.9 G/DL (14.2-18.0); LYMPHOCYTES % (AUTO) 19.4 % (20.0-45.0); MEAN CORPUSCULAR VOLUME 93 FL (80-99); MONOCYTES % (AUTO) 10.6 % (1.0-10.0); NEUTROPHILS % (AUTO) 67.1 % (45.0-75.0); PLATELET COUNT 105 K/UL (150-450); RED BLOOD COUNT 2.95 M/UL (4.70-6.10); RED CELL DISTRIBUTION WIDTH 10.6 % (11.6-14.8); WHITE BLOOD COUNT 5.4 K/UL (4.8-10.8)
--- NOTE | 2018-11-18 10:18 | NUR ---
DISCHARGE PLANNING PT NOTES HAVE BEEN FAXED TO: [facility] P:[phone] F:[phone]
[2018-11-18 10:23] LABS: ANION GAP 11 mmol/L (5-15); BLOOD UREA NITROGEN 18 mg/dL (7-18); CALCIUM 8.8 MG/DL (8.5-10.1); CARBON DIOXIDE 23 MMOL/L (21-32); CHLORIDE 94 MMOL/L (98-107); CREATININE 1.2 MG/DL (0.55-1.30); POTASSIUM 4.2 MMOL/L (3.5-5.1); SODIUM 128 MMOL/L (136-145)
[2018-11-18 10:30] LABS: ALANINE AMINOTRANSFERASE 25 U/L (12-78); ALBUMIN 3.1 G/DL (3.4-5.0); ALKALINE PHOSPHATASE 46 U/L (46-116); ASPARTATE AMINO TRANSFERASE 21 U/L (15-37); BILIRUBIN,TOTAL 0.6 MG/DL (0.2-1.0)
[2018-11-18 10:33] LABS: CREATINE KINASE 110 U/L (26-308)
--- NOTE | 2018-11-18 10:57 | NUR ---
MANAGER OF PHARMACY NOTES PT ACCEPTED TO [facility] ROOM 628. [facility] TO TRANSPORT PT WITH ETA NOON.FAMILY AND PT MADE AWARE. NURSE TO CALL REPORT TO [phone].
[2018-11-18 12:00] VITALS: BP 125/70
--- NOTE | 2018-11-18 12:26 | Pulmonology Progress Note ---
Assessment/Plan Problems: (1) Pelvic fracture (2) History of hypertension (3) Anemia (4) Hyponatremia Assessment/Plan all reviewed doing better f/u Na anemia w/u in process. dvt prophylaxis. d/w son and pt is improving could go to rehab the case and treatment plan were discussed with patient and family members. Subjective ROS Limited/Unobtainable: No Constitutional: Reports: no symptoms HEENT: Repors: no symptoms Allergies: Coded Allergies: Horse Serum Proteins (Unverified Allergy, Unknown, Anaphylaxis, 02/10/18) PENICILLINS (Verified Allergy, Unknown, 02/10/18) Uncoded Allergies: HAY FEVER (Allergy, Unknown, 02/10/18) Objective Last 24 Hour Vital Signs Date Time Temp Pulse Resp B/P (MAP) Pulse Ox O2 Delivery O2 Flow Rate FiO2 11/18/18 10:11 85 123/54 11/18/18 10:10 123/54 11/18/18 09:00 Room Air 11/18/18 08:00 97.7 85 18 123/54 (77) 97 11/18/18 08:00 86 11/18/18 04:00 98.3 83 18 125/74 (91) 96 11/18/18 03:39 81 11/18/18 00:00 97.6 80 19 130/94 (106) 95 11/18/18 00:00 79 11/17/18 21:21 88 131/80 11/17/18 21:00 Room Air 11/17/18 20:00 90 11/17/18 20:00 98.4 88 16 131/80 (97) 98 11/17/18 16:00 98.2 77 18 147/80 (102) 97 11/17/18 15:44 73 Intake and Output 11/17/18 11/18/18 18:59 06:59 Intake Total 700 ml Output Total 1400 ml 600 ml Balance -700 ml -600 ml Intake Oral 700 ml Output Urine Total 1400 ml 600 ml # Bowel Movements 1 1 General Appearance: WD/WN HEENT: normocephalic, anicteric Respiratory/Chest: chest wall non-tender, lungs clear Cardiovascular: normal peripheral pulses, normal rate, regular rhythm Abdomen: normal bowel sounds, soft, non tender Genitourinary: normal external genitalia Skin: no rash 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 Laboratory Tests 11/18/18 10:00: White Blood Count 5.4, Red Blood Count 2.95L, Hemoglobin 9.9L, Hematocrit 27.3L , Mean Corpuscular Volume 93, Mean Corpuscular Hemoglobin 33.7H, Mean Corpuscular Hemoglobin Concent 36.4H, Red Cell Distribution Width 10.6L, Platelet Count 105L, Mean Platelet Volume 7.6, Neutrophils (%) (Auto) 67.1, Lymphocytes (%) (Auto) 19.4L, Monocytes (%) (Auto) 10.6H, Eosinophils (%) (Auto ) 2.2, Basophils (%) (Auto) 0.8, Sodium Level 128L, Potassium Level 4.2, Chloride Level 94L, Carbon Dioxide Level 23, Anion Gap 11, Blood Urea Nitrogen 18, Creatinine 1.2, Estimat Glomerular Filtration Rate , Glucose Level 141H, Calcium Level 8.8, Total Bilirubin 0.6, Aspartate Amino Transf (AST/SGOT) 21, Alanine Aminotransferase (ALT/SGPT) 25, Alkaline Phosphatase 46, Total Creatine Kinase 110, Total Protein 6.3L, Albumin 3.1L, Globulin 3.2, Albumin/Globulin Ratio 1.0 Current Medications Medications (Trade) Dose Ordered Sig/Marie Route PRN Reason Start Time Stop Time Status Last Admin Dose Admin Acetaminophen (Tylenol) 650 mg Q4H PRN ORAL fever 11/15/18 09:15 12/15/18 09:14 Al Hydroxide/Mg Hydroxide (Mylanta II) 30 ml Q6H PRN ORAL dyspepsia 11/15/18 09:15 12/15/18 09:14 Aspirin (Ecotrin) 81 mg DAILY ORAL 11/15/18 14:15 12/15/18 14:14 11/18/18 10:09 Atorvastatin Calcium (Lipitor) 40 mg BEDTIME ORAL 11/15/18 21:00 12/15/18 20:59 11/17/18 21:22 Dextrose (Dextrose 50%) 25 ml Q30M PRN IV Hypoglycemia 11/15/18 09:15 12/15/18 09:14 Dextrose (Dextrose 50%) 50 ml Q30M PRN IV Hypoglycemia 11/15/18 09:15 12/15/18 09:14 Dextrose/Sodium Chloride 1,000 ml @ 50 mls/hr Q20H IV 11/18/18 09:45 12/18/18 09:44 11/18/18 09:42 Docusate Sodium (Colace) 100 mg THREE TIMES A DAY ORAL 11/17/18 13:00 12/17/18 12:59 11/18/18 10:09 Haloperidol (Haldol) 2.5 mg Q6H PRN ORAL Agitation 11/17/18 19:45 12/17/18 19:44 Losartan Potassium (Cozaar) 25 mg DAILY ORAL 11/16/18 09:00 12/16/18 08:59 11/18/18 10:10 Metoprolol Tartrate (Lopressor) 50 mg EVERY 12 HOURS ORAL 11/15/18 21:00 12/15/18 20:59 11/18/18 10:11 Ondansetron HCl (Zofran) 4 mg Q6H PRN IVP Nausea & Vomiting 11/15/18 09:15 12/15/18 09:14 Polyethylene Glycol (Miralax) 17 gm HSPRN PRN ORAL Constipation 11/15/18 09:15 12/15/18 09:14 Psyllium Hydrophilic Mucilloid (Metamucil) 1 pkt DAILY ORAL 11/18/18 09:00 12/18/18 08:59 11/18/18 10:09 Tamsulosin HCl (Flomax) 0.4 mg BEDTIME ORAL 11/16/18 21:00 12/16/18 20:59 11/17/18 21:22 Trimethoprim/ Sulfamethoxazole (Bactrim-DS) 1 tab Q12HR ORAL 11/17/18 21:00 11/20/18 23:00 11/18/18 10:10 Zolpidem Tartrate (Ambien) 5 mg HSPRN PRN ORAL Insomnia 11/15/18 09:15 11/22/18 09:14 Karen Maria MD Nov 18, 2018 12:26
--- NOTE | 2018-11-18 12:30 | NUR ---
NURSE NOTES: Patient to be transferred to [facility]. Report given to EMILIANO Quinonez. CD and discharge package given to Patient's spouse. Belongings checked signed and filed. IV and name band removed. Melendez to be kept with Patient per Dr. Maria. chain hoist operator removed cleaned and stored. Report given to ambulance personnel. Patient left the floor safely.
--- NOTE | 2018-11-18 18:59 | NUR ---
NURSE NOTES: Report received via telephone from JAMAR Horton RN. Patient not on the floor at this time.
--- NOTE | 2018-11-19 13:18 | Discharge Summary ---
Discharge Summary Discharge Summary _ DATE OF ADMISSION: 11/15/2018 DATE OF DISCHARGE: 11/18/2018 DISCHARGED BY: Dr. João Danielson CONSULTANTS: Dr. Karen So [facility] COURSE: Patient is an 78-year-old male, who lives at home, slipped and fell, sustained right hip pain. He presented to ED as he complained of significant pain in his right hip. Pain was aggravated with movement. He was unable to bear weight. He denied any dysuria, urinary frequency, denies any other trauma. He denied head trauma. He has medical history significant for coronary artery disease, coronary artery bypass graft 6 years ago and hypertension. On evaluation at the ED, vital signs were stable. Blood work did not show any leukocytosis, hemoglobin and hematocrit were stable. Creatinine was elevated to 1.5, BUN 19. Sodium level was 127, chloride 93. He had an x-ray to the hip and pelvis that showed vertical lucency suggesting minimally displaced fracture of the right acetabular roof. There was minimally displaced corner fracture of the superolateral margin of the right acetabulum. Hip CT was done and showed acute, mildly to moderately comminuted and mildly displaced right acetabular wall fracture, with associated ill-defined [id number] extraperitoneal right anterolateral pelvic hematoma. Chest x-ray with no acute process. He was then admitted for evaluation of right hip fracture and hyponatremia. Orthopedic evaluation was done. Radiographs and CT scan was reviewed. Per orthopedic assessment, there was no significant step off or displacement. He was recommended nonoperative treatment, recommended strict nonweightbearing. Ammonia Solution Preparer was consulted for electrolyte abnormalities. Patient has hyponatremia most likely result of hydrochlorothiazide. He was placed on free water restriction of 1 L/day. Renal function was monitored. He was started on Flomax. There was also possibility of rhabdomyolysis. Total CK was 110. Urine studies were made. Urine osmolality 435 and urine random sodium 34. Cardiac evaluation was done. 2D echogram showed normal LVEF at 55%. EKG did not show any evidence of ischemia. He was continued on aspirin and statins. Blood pressure was elevated, he was given losartan and metoprolol. Venous duplex of lower extremity was negative for DVT. ID was consulted for evaluation of UTI. UA had increase in leukocyte esterase. Patient was on Bactrim 2 days prior to hospitalization. Current urinalysis was essentially negative. He was continued on Bactrim. End of therapy 2018. Neurologist was consulted. Patient was noted to be exceedingly delirious. Patient was confused, disoriented, reaching out of things, acting as if he was driving a car and behaving in an unusual manner. Neurologist was consulted to evaluate his altered mental state. On neuro examination, he was responding to internal stimuli. He has significant problems with orientation, memory and higher cognitive function. He does not demonstrate any focal or lateralizing findings. He was recommended to stop morphine, Flexeril and Ativan. He was given Haldol. He was advised treatment of hyponatremia and urinary tract infection. He was given PT. He was continued on nonoperative treatment for the hip fracture. Urine culture did not isolate any growth. He was eventually discharged to [facility] acute rehab. FINAL DIAGNOSES: Acute right hip fracture status post fall Hyponatremia Acute drug-induced delirium/encephalopathy Anemia Hypertension Acute versus chronic renal failure Acute renal failure due to unstable hemodynamics Coronary artery disease Dyslipidemia Urinary tract infection Parkinsonism Back surgery Chronic prostate problems DISPOSITION: Patient was discharged to acute rehab. DISCHARGE MEDICATIONS: Refer to Discharge Medication List. I have been assigned to dictate discharge summary on this account, and I was not involved in the patient's management. Peace Varner NP Nov 19, 2018 13:18
== END 2018-11-18 12:30 | DRG 535 ==
LOC: EDBD 04:23 → EMR 04:35 → 2E 04:55 → EDBEDREQ 08:46 → EDBEDREQSVC 08:47 → EDBEDREQ 08:47
DX: S32.9XXA Fracture of unspecified parts of lumbosacral spine and pelvis, initial encounter for closed fracture (principal); G92 Toxic encephalopathy; E87.1 Hypo-osmolality and hyponatremia; N39.0 Urinary tract infection, site not specified; N17.9 Acute kidney failure, unspecified; M62.82 Rhabdomyolysis; G20 Parkinson's disease; W01.0XXA Fall on same level from slipping, tripping and stumbling without subsequent striking against object, initial encounter; Y92.009 Unspecified place in unspecified non-institutional (private) residence as the place of occurrence of the external cause; T50.905A Adverse effect of unspecified drugs, medicaments and biological substances, initial encounter; D64.9 Anemia, unspecified; I10 Essential (primary) hypertension; I25.10 Atherosclerotic heart disease of native coronary artery without angina pectoris; E78.5 Hyperlipidemia, unspecified; N42.9 Disorder of prostate, unspecified; Z95.1 Presence of aortocoronary bypass graft; Z88.0 Allergy status to penicillin; Z88.8 Allergy status to other drugs, medicaments and biological substances; F03.90 Unspecified dementia, unspecified severity, without behavioral disturbance, psychotic disturbance, mood disturbance, and anxiety
CPT/HCPCS: 36415; 71045; 72170; 80048; 80053; 80061; 81001; 82043; 82044; 82533; 82550; 82570; 83930; 83935; 84300; 84439; 84443; 84481; 84550; 85007; 85025; 85610; 85730; 87086; 89050; 93005; 93306; 93970; 96374; 96376; 99285